=== PATIENT | male | born 1970 | race Caucasian/White ===

== ENCOUNTER 2020-01-30 14:07 | Observation (INO) | payer MEDICARE ==
[2020-01-30] MEDS ORDERED: NITROGLYCERIN OINT 1 INCH/GM PACKET TOPICAL STA (14:41)
[2020-01-30] MEDS ORDERED: ASPIRIN 81 MG PO STA (14:41)
--- NOTE | 2020-01-30 14:51 | ED ---
General Adult HPI - General Chief complaint: Chest Pain Stated complaint: chest pain Time Seen by Provider: 01/30/20 14:10 Source: patient, RN notes reviewed, old records reviewed Mode of arrival: ambulatory Limitations: no limitations - History of Present Illness Initial comments: This a 49-year-old male who presents emergency Department with a past medical history significant for high blood pressure high cholesterol and bypass surgery 3 vessel at 32 years of age. Patient states he had a heart attack since then he's also had multiple stents placed. Patient states yesterday he had chest pain lasted about 15 minutes and today it lasted about 5 minutes. Patient states he was short of breath with the pain and it radiated to his shoulder. Patient states she also mildly sweaty. Patient denies any nausea or vomiting. Patient denies any recent fever chills or cough. Patient denies any leg swelling or calf tenderness. Patient states currently he only has 1 out of 10 chest pain. - Related Data Allergies Allergy/AdvReac Type Severity Reaction Status Date / Time Penicillins Allergy Rash/Hives Verified 01/30/20 14:12 Review of Systems ROS Statement: Those systems with pertinent positive or pertinent negative responses have been documented in the HPI. ROS Other: All systems not noted in ROS Statement are negative. Past Medical History Past Medical History: Myocardial Infarction ([place]) History of Any Multi-Drug Resistant Organisms: None Reported Past Surgical History: Coronary Bypass/CABG, Heart Catheterization With Stent Past Psychological History: No Psychological Hx Reported Smoking Status: Current some day smoker Past Alcohol Use History: None Reported Past Drug Use History: None Reported General Exam - General Exam Comments Initial Comments: GENERAL: Patient is well-developed and well-nourished. Patient is nontoxic and well- hydrated and is in mild distress. ENT: Neck is soft and supple. No significant lymphadenopathy is noted. Oropharynx is clear. Moist mucous membranes. Neck has full range of motion without eliciting any pain. EYES: The sclera were anicteric and conjunctiva were pink and moist. Extraocular movements were intact and pupils were equal round and reactive to light. Eyelids were unremarkable. PULMONARY: Unlabored respirations. Good breath sounds bilaterally. No audible rales rhonchi or wheezing was noted. CARDIOVASCULAR: There is a regular rate and rhythm without any murmurs gallops or rubs. ABDOMEN: Soft and nontender with normal bowel sounds. SKIN: Skin is clear with no lesions or rashes and otherwise unremarkable. NEUROLOGIC: Patient is alert and oriented x3. Cranial nerves II through XII are grossly intact. Motor and sensory are also intact. Normal speech, volume and content. Symmetrical smile. MUSCULOSKELETAL: Normal extremities with adequate strength and full range of motion. No lower ex tremity swelling or edema. No calf tenderness. LYMPHATICS: No significant lymphadenopathy is noted PSYCHIATRIC: Normal psychiatric evaluation. Limitations: no limitations Course Vital Signs 01/30/20 01/30/20 01/30/20 14:08 14:59 15:32 Temperature 97.5 F L Pulse Rate 102 H 96 87 Respiratory 18 18 18 Rate Blood Pressure 144/78 134/96 133/83 O2 Sat by Pulse 100 98 98 Oximetry Medical Decision Making - Medical Decision Making EKG shows normal sinus rhythm at 80 MS interval is 166 QRS is 102 QT interval 360 QTC is 4:15. Patient's EKG shows no ST segment elevation or depression. Chest x-ray shows no acute abnormality. I started the patient heparin for unstable angina. I spoke with Dr. Jaimes for sounds and admitted the patient I wrote admitting orders I consulted cardiology continued heparin Nitropaste on the floor. Patient remained chest pain-free on admission. - Lab Data Result diagrams: 01/30/20 14:43 01/30/20 14:43 Lab Results 01/30/20 01/30/20 01/30/20 Range/Units 14:43 14:43 14:43 WBC 9.2 (3.8-10.6) k/uL RBC 5.24 (4.30-5.90) m/uL Hgb 15.7 (13.0-17.5) gm/dL Hct 48.5 (39.0-53.0) % MCV 92.5 (80.0-100.0) fL MCH 29.9 (25.0-35.0) pg MCHC 32.3 (31.0-37.0) g/dL RDW 12.6 (11.5-15.5) % Plt Count 275 (150-450) k/uL Neutrophils % 46 % Lymphocytes % 41 % Monocytes % 6 % Eosinophils % 4 % Basophils % 1 % Neutrophils # 4.2 (1.3-7.7) k/uL Lymphocytes # 3.8 (1.0-4.8) k/uL Monocytes # 0.6 (0-1.0) k/uL Eosinophils # 0.3 (0-0.7) k/uL Basophils # 0.0 (0-0.2) k/uL PT 9.6 (9.0-12.0) sec INR 0.9 (<1.2) APTT 26.4 (22.0-30.0) sec Sodium 140 (137-145) mmol/L Potassium 4.6 (3.5-5.1) mmol/L Chloride 108 H (98-107) mmol/L Carbon Dioxide 22 (22-30) mmol/L Anion Gap 10 mmol/L BUN 11 (9-20) mg/dL Creatinine 0.68 (0.66-1.25) mg/dL Est GFR (CKD-EPI)AfAm >90 (>60 ml/min/1.73 sqM) Est GFR (CKD-EPI)NonAf >90 (>60 ml/min/1.73 sqM) Glucose 104 H (74-99) mg/dL Calcium 10.1 (8.4-10.2) mg/dL Magnesium 1.9 (1.6-2.3) mg/dL Total Bilirubin 0.3 (0.2-1.3) mg/dL AST 35 (17-59) U/L ALT 47 (4-49) U/L Alkaline Phosphatase 85 (38-126) U/L Troponin I (0.000-0.034) ng/mL Total Protein 8.2 (6.3-8.2) g/dL Albumin 5.0 (3.5-5.0) g/dL 01/30/20 Range/Units 14:43 WBC (3.8-10.6) k/uL RBC (4.30-5.90) m/uL Hgb (13.0-17.5) gm/dL Hct (39.0-53.0) % MCV (80.0-100.0) fL MCH (25.0-35.0) pg MCHC (31.0-37.0) g/dL RDW (11.5-15.5) % Plt Count (150-450) k/uL Neutrophils % % Lymphocytes % % Monocytes % % Eosinophils % % Basophils % % Neutrophils # (1.3-7.7) k/uL Lymphocytes # (1.0-4.8) k/uL Monocytes # (0-1.0) k/uL Eosinophils # (0-0.7) k/uL Basophils # (0-0.2) k/uL PT (9.0-12.0) sec INR (<1.2) APTT (22.0-30.0) sec Sodium (137-145) mmol/L Potassium (3.5-5.1) mmol/L Chloride (98-107) mmol/L Carbon Dioxide (22-30) mmol/L Anion Gap mmol/L BUN (9-20) mg/dL Creatinine (0.66-1.25) mg/dL Est GFR (CKD-EPI)AfAm (>60 ml/min/1.73 sqM) Est GFR (CKD-EPI)NonAf (>60 ml/min/1.73 sqM) Glucose (74-99) mg/dL Calcium (8.4-10.2) mg/dL Magnesium (1.6-2.3) mg/dL Total Bilirubin (0.2-1.3) mg/dL AST (17-59) U/L ALT (4-49) U/L Alkaline Phosphatase (38-126) U/L Troponin I <0.012 (0.000-0.034) ng/mL Total Protein (6.3-8.2) g/dL Albumin (3.5-5.0) g/dL Critical Care Time Critical Care Time: Yes Total Critical Care Time: 35 Disposition Clinical Impression: Unstable angina pectoris Disposition: ADMITTED IP TO THIS [facility] Referrals: None,Stated [Primary Care Provider] - 1-2 days Time of Disposition: 16:12
--- NOTE | 2020-01-30 14:57 | XR ---
EXAMINATION TYPE: XR chest 2V DATE OF EXAM: 01/30/2020 COMPARISON: NONE TECHNIQUE: PA and lateral views submitted. HISTORY: Chest pain FINDINGS: The lungs are clear and there is no pneumothorax, pleural effusion, or focal pneumonia. Biapical pl eural thickening. Surgical change. Coronary stenting noted. Mild cardiomegaly without evidence of ove rt failure. Hyperinflation suggests COPD. Degenerative change of the spine IMPRESSION: 1. No acute process. Correlate for COPD.
[2020-01-30 15:06] LABS: Basophils % (A) 1 %; Eosinophils # (A) 0.3 k/uL (0-0.7); Eosinophils % (A) 4 %; HCT 48.5 % (39.0-53.0); HGB 15.7 gm/dL (13.0-17.5); Lymphocytes # (A) 3.8 k/uL (1.0-4.8); Lymphocytes % (A) 41 %; MCH 29.9 pg (25.0-35.0); MCHC 32.3 g/dL (31.0-37.0); MCV 92.5 fL (80.0-100.0); Mean Platelet Volume 8.1; Monocytes # (A) 0.6 k/uL (0-1.0); Monocytes % (A) 6 %; Neutrophils # (A) 4.2 k/uL (1.3-7.7); Neutrophils % (A) 46 %; Platelet Count 275 k/uL (150-450); RBC 5.24 m/uL (4.30-5.90); RDW 12.6 % (11.5-15.5); WBC 9.2 k/uL (3.8-10.6)
[2020-01-30 15:16] LABS: ALT 47 U/L (4-49); AST 35 U/L (17-59); African American GFR (CKD) >90 (>60 ml/min/1.73 sqM); Alkaline Phosphatase 85 U/L (38-126); Anion Gap 10 mmol/L; Blood Urea Nitrogen 11 mg/dL (9-20); Calcium 10.1 mg/dL (8.4-10.2); Carbon Dioxide 22 mmol/L (22-30); Chloride 108 mmol/L (98-107); Glucose 104 mg/dL (74-99); Magnesium 1.9 mg/dL (1.6-2.3); Non-African American GFR(CKD) >90 (>60 ml/min/1.73 sqM); Potassium 4.6 mmol/L (3.5-5.1); Sodium 140 mmol/L (137-145); Total Bilirubin 0.3 mg/dL (0.2-1.3); Total Protein 8.2 g/dL (6.3-8.2)
[2020-01-30 15:17] LABS: INR 0.9 (<1.2); Partial Thromboplastin Time 26.4 sec (22.0-30.0); Prothrombin Time 9.6 sec (9.0-12.0)
[2020-01-30] MEDS ORDERED: HEPARIN SODIUM,PORCINE 5,000 UNIT/ML 1 ML VIAL IV ONE (16:10)
[2020-01-30] MEDS ORDERED: NITROGLYCERIN SL TABS 0.4 MG TAB SUBLINGUAL PRN (16:12)
[2020-01-30] MEDS ORDERED: HEPARIN SOD,PORK IN 0.45% NACL 25,000 UNIT in 0.45% NACL 1 250ML.BAG IV SCH (16:15)
[2020-01-30] MEDS ORDERED: NALOXONE 0.4 MG/ML 1 ML VIAL IV PRN (17:01)
--- NOTE | 2020-01-30 17:11 | P.HPIM ---
History of Present Illness H&P Date: 01/30/20 Chief Complaint: Chest pain 49-year-old male with a past medical history significant for hypertension and hypercholesterolemia and CAD s/p bypass surgery 3 vessel at 32 years of age, 5 stents placed presents to the emergency department because of worsening chest pain over the past 3 days. He states that last night it became significantly worse. It is located in the center of his chest. This pain is worse with activity and relieved by rest. Associated with mild shortness of breath, diaphoresis and dizziness as well. No nausea or vomiting. No recent illness. No cough. No fevers or chills. Patient denies any leg swelling or calf tenderness. Patient states that he currently has burning sensation behind his chest. In the emergency department he was extensively evaluated, troponins were negative. Rest of laboratory evaluation was unremarkable. He was started on heparin drip and admitted for suspected unstable angina. Review of Systems Complete review of system performed, pertinent positives per HPI, otherwise negative Past Medical History Past Medical History: Myocardial Infarction ([place]) History of Any Multi-Drug Resistant Organisms: None Reported Past Surgical History: Coronary Bypass/CABG, Heart Catheterization With Stent Past Psychological History: No Psychological Hx Reported Smoking Status: Current some day smoker Past Alcohol Use History: None Reported Past Drug Use History: None Reported Medications and Allergies Home Medications Medication Instructions Recorded Confirmed Type Atorvastatin [Lipitor] 80 mg PO DAILY 01/30/20 01/30/20 History Clopidogrel Bisulfate [Plavix] 75 mg PO DAILY 01/30/20 01/30/20 History Isosorbide Mononitrate ER [Imdur] 30 mg PO DAILY 01/30/20 01/30/20 History Lisinopril [Prinivil] 5 mg PO DAILY 01/30/20 01/30/20 History Metoprolol Tartrate [Lopressor] 50 mg PO BID 01/30/20 01/30/20 History Allergies Allergy/AdvReac Type Severity Reaction Status Date / Time Penicillins Allergy Rash/Hives Verified 01/30/20 14:12 Physical Exam Vitals: Vital Signs Temp Pulse Resp BP Pulse Ox 01/30/20 15:32 87 18 133/83 98 01/30/20 14:59 96 18 134/96 98 01/30/20 14:08 97.5 F L 102 H 18 144/78 100 Intake and Output 01/30/20 01/30/20 01/30/20 06:59 14:59 22:59 Other: Weight 81.647 kg Constitutional: No acute distress, conversant, pleasant Eyes:Anicteric sclerae, moist conjunctiva, no lid-lag, PERRLA, ENMT: Oropharynx clear, no erythema, exudates Neck: Supple, FROM, no masses, or JVD, No carotid bruits, No thyromegaly Lungs: Clear to auscultation, Clear to percussion, Normal respiratory effort, no accessory muscle use Cardiovascular: Heart regular in rate and rhythm, No murmurs, gallops, or rubs, No peripheral edema Abdominal: Soft, Nontender, no guarding, rebound or rigidity, Normoactive bowel sounds, No hepatomegaly, No splenomegaly, No palpable mass Skin: Normal temperature, tone, texture, turgor, no induration, No subcutaneous nodules, No rash, lesions, No ulcers Extremities: No digital cyanosis, No clubbing, Pedal pulses intact and symmetrical, Radial pulses intact and symmetrical, No calf tenderness Psychiatric: Alert and oriented to person, place and time, appropriate affect, intact judgement Neuro: Muscles Strength 5/5 in all 4 extremities, Sensation to light touch grossly present throughout, Cranial nerves II-XII grossly intact, no focal sensory deficits Results CBC & Chem 7: 01/30/20 14:43 01/30/20 14:43 Labs: Abnormal Lab Results - Last 24 Hours (Table) 01/30/20 Range/Units 14:43 Chloride 108 H (98-107) mmol/L Glucose 104 H (74-99) mg/dL Assessment and Plan Plan: Unstable angina, rule out non-STEMI Cycle troponins Monitor on telemetry Heparin drip Aspirin Continue Plavix Continue statin and beta adama Cardiology consultation Hypertension/hyperlipidemia Check lipid profile Resume meds Patient will be admitted to inpatient, expected length of stay more than 2 midnights
[2020-01-30] MEDS: ATORVASTATIN 80 MG TAB PO SCH (18:19)
[2020-01-30] MEDS ORDERED: RX INFO: IV CONTRAST WAS GIVEN 1 EACH MISC MISCELLANE PRN (18:20)
--- NOTE | 2020-01-30 18:20 | P.CARDCATH ---
Date of Procedure: 01/30/20 Preoperative Diagnosis: Unstable angina Postoperative Diagnosis: Triple-vessel disease Procedure(s) Performed: Left heart catheterization without left ventriculography Description of Procedure: HISTORY: This is a 49-year-old gentleman with history of ischemic heart disease with previous stent placement of the RCA was admitted to the hospital with recurrent chest pain size to of unstable angina. His cardiac enzymes studies are negative. Patient is advised to have a cardiac catheterization proceeded is any progression of ischemic heart disease. CONSENT:I have discussed the risks, benefits and alternative therapies for the above-mentioned procedure and for both sedation/analgesia as well as necessary blood product administration, if indicated, as they pertain to this patient. The patient has indicated understanding and acceptance of the risks and procedures discussed. [] PROCEDURE: Patient was brought to the lab in a fasting state. Patient was given some IV sedation. The right groin is infiltrated with lidocaine and right femoral artery was entered using Seldinger technique. A 6-Indonesian catheter was left in place and selective coronary arteriography was performed. Patient tolerated the procedure well. Femoral angiogram was performed and Angio-Seal was applied for hemostasis. No immediate complications were noted and patient was transferred to [facility] in a stable condition Conscious Sedation: Versed 1mg Fentanyl 50 g Duration 19minutes HEMODYNAMICS: The aortic pressure is about 120/70. Left ankle end-diastolic pressure is 8-12. There was no gradient across the aortic valve SELECTIVE CORONARY ARTERIOGRAPHY: LEFT MAIN: Normal length with about 40-50% distal stenosis THE LEFT ANTERIOR DESCENDING CORONARY ARTERY:. This is a good caliber vessel with eccentric close to 70% stenosis proximally. It gives rise to moderate caliber diagonal branch the LAD diagonal branch is about 60-70% stenosis. THE LEFT CIRCUMFLEX AND IS CORONARY ARTERY: This is a moderate caliber vessel with a of moderate plaque beyond the origin of the first OM branch. Rest of the circumflex is free of any significant occlusive disease THE RIGHT CORONARY ARTERY:. This is totally occluded and at the ostium. There are collaterals from the left to the distal RCA LEFT VENTRICULOGRAPHY: Not performed FINAL IMPRESSION:, Coronary artery disease with total occlusion of the RCA moderate to severe disease involving the left main and also proximal LAD PLAN: Maximum medical therapy. Possible revascularization with bypass surgery to the LAD, circumflex and also the right coronary artery. Cardiac surgery consultation is obtained PROGNOSIS: Guarded
[2020-01-30] MEDS ORDERED: SODIUM CHLORIDE 0.9% 1,000 ML IV SCH (18:30)
[2020-01-30] MEDS: NITROGLYCERIN OINT 1 INCH/GM PACKET TOPICAL SCH (22:10)
[2020-01-30] MEDS: METOPROLOL TARTRATE 50 MG TAB PO SCH (22:11)
[2020-01-31] MEDS: NITROGLYCERIN OINT 1 INCH/GM PACKET TOPICAL SCH (05:09)
[2020-01-31 06:08] LABS: Basophils # (A) 0.1 k/uL (0-0.2); Basophils % (A) 1 %; Eosinophils # (A) 0.3 k/uL (0-0.7); Eosinophils % (A) 3 %; HCT 43.6 % (39.0-53.0); Lymphocytes # (A) 4.5 k/uL (1.0-4.8); Lymphocytes % (A) 47 %; MCH 30.1 pg (25.0-35.0); MCHC 32.2 g/dL (31.0-37.0); MCV 93.6 fL (80.0-100.0); Mean Platelet Volume 8.1; Monocytes # (A) 0.7 k/uL (0-1.0); Monocytes % (A) 7 %; Neutrophils # (A) 3.6 k/uL (1.3-7.7); Neutrophils % (A) 38 %; Platelet Count 233 k/uL (150-450); RBC 4.66 m/uL (4.30-5.90); RDW 12.6 % (11.5-15.5); WBC 9.6 k/uL (3.8-10.6)
[2020-01-31 06:33] LABS: African American GFR (CKD) >90 (>60 ml/min/1.73 sqM); Anion Gap 6 mmol/L; Blood Urea Nitrogen 10 mg/dL (9-20); Carbon Dioxide 24 mmol/L (22-30); Chloride 110 mmol/L (98-107); Cholesterol 154 mg/dL (<200); Glucose 101 mg/dL (74-99); HDL Cholesterol 37 mg/dL (40-60); LDL Cholesterol,Calculated 74 mg/dL (0-99); Magnesium 1.9 mg/dL (1.6-2.3); Non-African American GFR(CKD) >90 (>60 ml/min/1.73 sqM); Phosphorus 3.9 mg/dL (2.5-4.5); Potassium 4.4 mmol/L (3.5-5.1); Sodium 140 mmol/L (137-145); Triglycerides 215 mg/dL (<150)
[2020-01-31 08:03] VITALS: RESP 18
[2020-01-31] MEDS ORDERED: ASPIRIN 325 MG TAB PO SCH (09:00)
[2020-01-31] MEDS ORDERED: ISOSORBIDE MONONITRATE ER 30 MG TAB.ER.24H PO SCH (09:00)
[2020-01-31] MEDS ORDERED: ASPIRIN 81 MG PO SCH (09:00)
[2020-01-31] MEDS ORDERED: CLOPIDOGREL 75 MG TAB PO SCH (09:00)
[2020-01-31] MEDS ORDERED: LISINOPRIL 5 MG TAB PO SCH (09:00)
[2020-01-31] MEDS ORDERED: EZETIMIBE 10 MG TAB PO SCH (10:45)
--- NOTE | 2020-01-31 11:48 | P.CRDCN ---
History of Present Illness History of present illness: HISTORY OF PRESENTING ILLNESS This is a pleasant 49-year-old male past medical history significant for coronary artery disease status post bypass grafting and subsequent stent placement, hypertension, dyslipidemia and chronic nicotine dependence. He follows in the office with Dr. Weaver. We have been asked to see in consultation for chest pain. He states yesterday while sitting down he experienced an episode of sharp discomfort in the left precordial region. There was no associated symptoms and no radiation of the pain. The discomfort lasted for approximately 15 minutes with no specific aggravating or alleviating factor. He states he has not experienced a discomfort like this in the past this felt different than his previous MIs. He states his last myocardial infarction was in 2018. That time he underwent cardiac catheterization with Dr. Weaver. That report has been requested and reviewed and at that time he had 2 vein grafts that were occluded with a patent SRIVASTAVA to LAD and maximizing his medical therapy was recommended. He is seen and examined resting comfortably in no acute distress. He has had no further symptoms of chest discomfort. DIAGNOSTICS EKG reveals sinus mechanism with no acute ST or T-wave abnormalities. Chest xray negative for an acute cardiopulmonary process with underlying COPD. Laboratory reviewed, see unremarkable, sodium 140, potassium 4.4, creatinine 0.78, magnesium 1.9, cardiac enzymes negative 3, LDL 74 and HDL 37. Current cardiac medications include atorvastatin 80 mg daily, Plavix 75 mg daily, Imdur 30 mg daily, lisinopril 5 mg daily and metoprolol 50 mg twice a day. REVIEW OF SYSTEMS At the time of my exam: CONSTITUTIONAL: Denies fever or chills. CARDIOVASCULAR: Denies chest pain, shortness of breath, orthopnea, PND or palpitations. RESPIRATORY: Denies cough. GASTROINTESTINAL: Denies abdominal pain, diarrhea, constipation, nausea or vomiting. MUSCULOSKELETAL: Denies myalgias. NEUROLOGIC: Denies numbness, tingling or weakness. ENDOCRINE: Denies fatigue, weight change, polydipsia or polyurina. GENITOURINARY: Denies burning, hematuria or urgency with micturation. HEMATOLOGIC: Denies history of anemia or bleeding. PHYSICAL EXAMINATION Blood pressure 122/73 heart rate 72 afebrile and maintaining oxygen saturation on room air. CONSTITUTIONAL: No apparent distress. HEENT: Head is normocephalic. Pupils are equal, round. Sclerae anicteric. Mucous membranes of the mouth are moist. No JVD. No carotid bruit. CHEST EXAMINATION: Lungs are clear to auscultation. No chest wall tenderness is noted on palpation or with deep breathing. HEART EXAMINATION: Regular rate and rhythm. S1, S2 heard. No murmurs, gallops or rub. ABDOMEN: Soft, nontender. Positive bowel sounds. EXTREMITIES: 2+ peripheral pulses, no lower extremity edema and no calf tenderness. NEUROLOGIC EXAMINATION: Patient is awake, alert and oriented x3. ASSESSMENT Chest pain, atypical. An acute coronary event has been ruled out. Coronary artery disease status post bypass grafting with occluded vein grafts and patent SRIVASTAVA to LAD Hypertension Dyslipidemia Chronic nicotine dependence PLAN An acute coronary event has been ruled out. Increase Imdur to 60 mg daily and and steady at 10 mg to his daily regimen for an optimal LDL of less than 50 given his significant coronary artery disease. Increase activity and ambulation in the halls. If he has persistent exertional chest pain we will continue to monitor for another 24 hours otherwise he may be discharged home to follow-up with Dr. Weaver upon discharge. Thank you kindly for this consultation. Nurse Practitioner note has been reviewed, I agree with a documented findings and plan of care. Patient was seen and examined. Past Medical History Past Medical History: Hyperlipidemia, Hypertension, Myocardial Infarction ([place]) Last Myocardial Infarction Date:: 05/2018 History of Any Multi-Drug Resistant Organisms: None Reported Past Surgical History: Coronary Bypass/CABG, Heart Catheterization With Stent Additional Past Surgical History / Comment(s): triple bypass 2002?, heart caths with about 6 stents Past Anesthesia/Blood Transfusion Reactions: No Reported Reaction Date of Last Stent Placement:: 2010? Past Psychological History: No Psychological Hx Reported Smoking Status: Current some day smoker Past Alcohol Use History: None Reported Additional Past Alcohol Use History / Comment(s): has smoked for 35 years, smokes about a pack and a half a day. Past Drug Use History: None Reported Medications and Allergies Home Medications Medication Instructions Recorded Confirmed Type Atorvastatin [Lipitor] 80 mg PO DAILY 01/30/20 01/30/20 History Clopidogrel Bisulfate [Plavix] 75 mg PO DAILY 01/30/20 01/30/20 History Isosorbide Mononitrate ER [Imdur] 30 mg PO DAILY 01/30/20 01/30/20 History Lisinopril [Prinivil] 5 mg PO DAILY 01/30/20 01/30/20 History Metoprolol Tartrate [Lopressor] 50 mg PO BID 01/30/20 01/30/20 History Allergies Allergy/AdvReac Type Severity Reaction Status Date / Time Penicillins Allergy Rash/Hives Verified 01/30/20 14:12 Physical Exam Vitals: Vital Signs Temp Pulse Pulse Resp BP BP Pulse Ox 01/31/20 07:30 97.6 F 72 18 122/73 97 01/31/20 04:00 97.9 F 65 16 136/80 99 01/31/20 00:00 98.0 F 78 17 101/66 98 01/30/20 19:40 16 01/30/20 19:27 98.0 F 67 16 121/74 97 01/30/20 18:47 118/52 01/30/20 18:30 118/54 01/30/20 17:52 98.5 F 83 18 142/86 99 01/30/20 17:27 97.5 F L 77 18 127/77 100 01/30/20 17:22 77 18 127/77 100 01/30/20 15:32 87 18 133/83 98 01/30/20 14:59 96 18 134/96 98 01/30/20 14:08 97.5 F L 102 H 18 144/78 100 Intake and Output 01/30/20 01/31/20 01/31/20 22:59 06:59 14:59 Intake Total 480 Balance 480 Intake: Oral 480 Other: # Voids 1 Weight 84.9 kg 85.3 kg Results 01/31/20 05:51 01/31/20 05:51 Cardiac Enzymes 01/30/20 01/30/20 01/30/20 Range/Units 14:43 14:43 20:25 AST 35 (17-59) U/L Troponin I <0.012 <0.012 (0.000-0.034) ng/mL 01/31/20 Range/Units 03:12 AST (17-59) U/L Troponin I <0.012 (0.000-0.034) ng/mL Coagulation 01/30/20 01/30/20 01/31/20 Range/Units 14:43 22:52 05:51 PT 9.6 (9.0-12.0) sec APTT 26.4 60.6 H 49.0 H (22.0-30.0) sec Lipids 01/31/20 Range/Units 05:51 Triglycerides 215 H (<150) mg/dL Cholesterol 154 (<200) mg/dL HDL Cholesterol 37 L (40-60) mg/dL CBC 01/30/20 01/31/20 Range/Units 14:43 05:51 WBC 9.2 9.6 (3.8-10.6) k/uL RBC 5.24 4.66 (4.30-5.90) m/uL Hgb 15.7 14.0 (13.0-17.5) gm/dL Hct 48.5 43.6 (39.0-53.0) % Plt Count 275 233 (150-450) k/uL Comprehensive Metabolic Panel 01/30/20 01/31/20 Range/Units 14:43 05:51 Sodium 140 140 (137-145) mmol/L Potassium 4.6 4.4 (3.5-5.1) mmol/L Chloride 108 H 110 H (98-107) mmol/L Carbon Dioxide 22 24 (22-30) mmol/L BUN 11 10 (9-20) mg/dL Creatinine 0.68 0.78 (0.66-1.25) mg/dL Glucose 104 H 101 H (74-99) mg/dL Calcium 10.1 9.0 (8.4-10.2) mg/dL AST 35 (17-59) U/L ALT 47 (4-49) U/L Alkaline Phosphatase 85 (38-126) U/L Total Protein 8.2 (6.3-8.2) g/dL Albumin 5.0 (3.5-5.0) g/dL Current Medications Generic Name Dose Route Start Last Admin Trade Name Freq PRN Reason Stop Dose Admin Aspirin 81 mg 01/31/20 09:00 Aspirin PO DAILY [facility] Atorvastatin Calcium 80 mg 01/30/20 17:15 01/30/20 18:19 Lipitor PO 80 mg DAILY [facility] Administration Clopidogrel Bisulfate 75 mg 01/31/20 09:00 Plavix PO DAILY [facility] Heparin Sodium/Sodium Chloride 250 mls @ 9.798 mls/hr 01/30/20 16:15 01/30/20 17:23 25,000 unit/ Sodium Chloride IV 12 units/kg/hr .Q24H [facility]ANK 9.798 mls/hr Administration Protocol 12 UNITS/KG/HR Sodium Chloride 1,000 mls @ 75 mls/hr 01/30/20 18:30 01/30/20 22:11 Saline 0.9% IV 75 mls/hr .[id number] [facility]ANK Administration Isosorbide Mononitrate 30 mg 01/31/20 09:00 Imdur PO DAILY [facility] Lisinopril 5 mg 01/31/20 09:00 Zestril PO DAILY [facility] Metoprolol Tartrate 50 mg 01/30/20 21:00 01/30/20 22:11 Lopressor PO 50 mg BID [facility] Administration Miscellaneous Information 1 each 01/30/20 18:20 Rx Info: Iv Contrast Was Given MISCELLANE 02/01/20 18:20 DAILY PRN Per Protocol Naloxone HCl 0.2 mg 01/30/20 17:01 Narcan IV Q2M PRN Opioid Reversal Nitroglycerin 0.4 mg 01/30/20 16:12 Nitrostat SUBLINGUAL Q5M PRN Chest Pain Nitroglycerin 1 inch 01/30/20 21:00 01/31/20 05:09 Nitro-Bid Oint TOPICAL Not Given Q6H FRANK Intake and Output 01/30/20 01/31/20 01/31/20 22:59 06:59 14:59 Intake Total 480 Balance 480 Intake: Oral 480 Other: # Voids 1 Weight 84.9 kg 85.3 kg 01/31/20 05:51 01/31/20 05:51
[2020-01-31 11:59] VITALS: BP 129/79; PULSE 67; TEMP 98.2
[2020-01-31] MEDS ORDERED: ISOSORBIDE MONONITRATE ER 60 MG TAB.ER.24H PO STA (12:27)
[2020-01-31] MEDS: METOPROLOL TARTRATE 50 MG TAB PO SCH (12:44)
[2020-01-31] MEDS: ATORVASTATIN 80 MG TAB PO SCH (12:44)
--- NOTE | 2020-01-31 19:45 | ECHOF ---
Referral Reason:cp MEASUREMENTS -------- HEIGHT: 180.3 cm WEIGHT: 85.3 kg BP: RVIDd: 3.2 cm (< 3.3) IVSd: 1.1 cm (0.6 - 1.1) LVIDd: 4.7 cm (3.9 - 5.3) LVPWd: 1.5 cm (0.6 - 1.1) IVSs: 1.6 cm LVIDs: 3.5 cm LVPWs: 1.5 cm LAESV Index (A-L): 23.48 ml/m Ao Diam: 3.3 cm (2.0 - 3.7) AV Cusp: 2.4 cm (1.5 - 2.6) LA Diam: 3.5 cm (2.7 - 3.8) MV EXCURSION: 19.436 mm (> 18.000) MV EF SLOPE: 121 mm/s (70 - 150) EPSS: 0.5 cm MV E Sukhjinder: 0.60 m/s MV DecT: 150 ms MV A Sukhjinder: 0.48 m/s MV E/A Ratio: 1.24 RAP: 5.00 mmHg RVSP: 11.95 mmHg FINDINGS -------- Sinus rhythm. This was a technically good study. The left ventricular size is normal. There is mild concentric left ventricular hypertrophy. Overa ll left ventricular systolic function is low-normal with, an EF between 50 - 55 %. The diastolic fi lling pattern is normal for the age of the patient 5.97. Septal wall motion is delayed and consiste nt with prior cardiac surgery. The right ventricle is normal in size. The left atrial size is normal. Normal LA size by volume 22+/-6 ml/m2. The right atrial size is normal. The aortic valve is trileaflet and appears structurally normal. The mitral valve is normal. There is trace mitral regurgitation. The tricuspid valve appears structurally normal. Trace tricuspid regurgitation present. Right maribel tricular systolic pressure is normal at < 35 mmHg. There is no pulmonic regurgitation present. The aortic root size is normal. Normal inferior vena cava with normal inspiratory collapse consistent with estimated right atrial pre ssure of 5 mmHg. There is no pericardial effusion. CONCLUSIONS -------- 1. Sinus rhythm. 2. This was a technically good study. 3. The left ventricular size is normal. 4. There is mild concentric left ventricular hypertrophy. 5. Overall left ventricular systolic function is low-normal with, an EF between 50 - 55 %. 6. The diastolic filling pattern is normal for the age of the patient 5.97 7. Septal wall motion is delayed and consistent with prior cardiac surgery. 8. The right ventricle is normal in size. 9. The left atrial size is normal. 10. Normal LA size by volume 22+/-6 ml/m2. 11. The right atrial size is normal. 12. The aortic valve is trileaflet and appears structurally normal. 13. The mitral valve is normal. 14. There is trace mitral regurgitation. 15. The tricuspid valve appears structurally normal. 16. Trace tricuspid regurgitation present. 17. Right ventricular systolic pressure is normal at < 35 mmHg. 18. There is no pulmonic regurgitation present. 19. The aortic root size is normal. 20. Normal inferior vena cava with normal inspiratory collapse consistent with estimated right atrial pressure of 5 mmHg. 21. There is no pericardial effusion. HUMAN SERVICES ASSISTANT: Alejandra Canada RDCS
--- NOTE | 2020-01-31 20:51 | P.DS ---
Providers Date of admission: 01/30/20 17:01 Expected date of discharge: 01/31/20 Attending physician: Belia Ordoñez MD Consults: 01/30/20 16:13 Consult Physician Urgent Consulting Provider: [facility] Consult Reason/Comments: Unstable angina Do you want consulting provider notified?: Yes Primary care physician: Stated None Hospital Course: Discharge Diagnosis: Chest pain anxiety HLD HTN CAD Hospital Course: Patient is a 49-year-old male with a past medical history of coronary artery disease status post bypass grafting at age 32 and 5 stents, hypertension, and dyslipidemia who presented to the emergency department for chest pain. His troponins remained negative. EKG remained nonischemic. He was started on increased Imdur. He was no longer having chest pain on exertion. He was seen by cardiology. He was determined stable for discharge home. He was noted to have elevated triglyceride level as well as an LDL of 74. They recommended adding Zetia to his Lipitor. Patient reports some increased stress at home secondary to his mother having pancreatic cancer need to take her to all appointments. He also states he has not been eating right. He does think some of this chest pain may be secondary to increased stress at home. He is aware of the importance of following up with Dr. Weavre his primary clubhouse attendant out of [place] to determine if he thinks further action needs to be taken. We have also discussed finding a primary care physician to help start him on a medication for stress. He will think about seeing Dr. Ruano out of [place]. He was discharged home in stable condition on a 30 day supply of his new medications are sent to [facility] in [place]. Patient seen and examined at bedside. No additional chest pain or shortness of breath. Vital signs reviewed and stable. General: non toxic, no distress, appears at stated age Derm: warm, dry Head: atraumatic, normocephalic, symmetric Eyes: EOMI, no lid lag, anicteric sclera Mouth: no lip lesion, mucus membranes moist Cardiovascular: S1S2 reg, no murmur, positive posterior tibial pulse bilateral, Lungs: CTA bilateral, no rhonchi, no rales , no accessory muscle use Abdominal: soft, nontender to palpation, no guarding, no appreciable organomegaly Ext: no gross muscle atrophy, no edema, no contractures Neuro: CN II-XI grossly intact, no focal neuro deficits Psych: Alert, oriented, appropriate affect A total of 25 minutes of time were spent preparing this complex discharge summary . Patient Condition at Discharge: Stable Plan - Discharge Summary Discharge Rx Participant: Yes New Discharge Prescriptions: New Aspirin 81 mg PO DAILY chew Isosorbide Mononitrate ER [Imdur] 60 mg PO DAILY #60 tab.er.24h Ezetimibe [Zetia] 10 mg PO DAILY #30 tab Continue Atorvastatin [Lipitor] 80 mg PO DAILY Metoprolol Tartrate [Lopressor] 50 mg PO BID Clopidogrel Bisulfate [Plavix] 75 mg PO DAILY Lisinopril [Prinivil] 5 mg PO DAILY Discontinued Isosorbide Mononitrate ER [Imdur] 30 mg PO DAILY Discharge Medication List Atorvastatin [Lipitor] 80 mg PO DAILY 01/30/20 [History] Clopidogrel Bisulfate [Plavix] 75 mg PO DAILY 01/30/20 [History] Lisinopril [Prinivil] 5 mg PO DAILY 01/30/20 [History] Metoprolol Tartrate [Lopressor] 50 mg PO BID 01/30/20 [History] Aspirin 81 mg PO DAILY chew 01/31/20 [Rx] Ezetimibe [Zetia] 10 mg PO DAILY #30 tab 01/31/20 [Rx] Isosorbide Mononitrate ER [Imdur] 60 mg PO DAILY #60 tab.er.24h 01/31/20 [Rx] Follow up Appointment(s)/Referral(s): Cuba Ruano MD [STAFF PHYSICIAN] - 1 Week Elmo Weaver DO [REFERRING] - 1-2 Days Patient Instructions/Handouts: Heart Healthy Diet (GEN), Mediterranean Diet (GEN) Activity/Diet/Wound Care/Special Instructions: Activity: as tolerated Diet: heart healthy Special Instructions: Return to emergency department if recurrent chest pain Discharge Disposition: HOME SELF-CARE
[2020-02-01] MEDS ORDERED: ISOSORBIDE MONONITRATE ER 60 MG TAB.ER.24H PO SCH (09:00)
--- NOTE | 2020-02-06 00:42 | CDI ---
Documentation Clarification Form Date: 02/06/2020 From: Charanjit Olsen Phone: If you have a question about this query, please contact Kandy Jean-Baptiste Ladle Repairman at [phone] between 8am and 5pm. Admit Date: 01/30/2020 Discharge Date: 01/31/2020 Patient Name: Stewart Smith Visit Number: [id number] ATTENTION: The Clinical Documentation Specialists (CDI) and [facility] Coding Staff appreciate your assistance in clarifying documentation. Please respond to the clarification below the line at the bottom and electronically sign. The CDI & [facility] Coding staff will review the response and follow-up if needed. Please note: Queries are made part of the Legal Health Record. If you have any questions, please contact the author of this message via ITS. Dear Nakia Clemens, The patients principal diagnosis has not been clearly identified and requires clarification. He presented with the Chest pain. History/Risk factors: Myocardial infarction. Radiology findings: No acute process.Correlate for COPD. Vital Signs: Pulse Rate 102 H 96 87 Respiratory 18 18 18 Treatment:He was started on increased Imdur. Other tx: ECHO. Patient reports some increased stress at home secondary to his mother having pancreatic cancer need to take her to all appointments.He also states he has not been eating right.He does think some of this chest pain may be secondary to increased stress at home. In your professional opinion, can you please clarify which diagnosis, after study, accounted for the patients presenting symptoms and was the reason chiefly responsible for the admission? Chest pain related to Acute stress reaction Chest pain , Atypical Chest Pain, atypical MTDD
== END 2020-01-31 15:50 | disposition home or self-care (01) ==
LOC: EC 14:07 → 1SOBS 16:24 → OBSVTOIN 17:01 → INTOOBSV 17:01 → UNDODISIN 01-31 15:50
PROVIDERS: ADMIT Internal Medicine; ATTEND Internal Medicine
DX: R07.89 Other chest pain (principal); R07.2 Precordial pain; R06.02 Shortness of breath; R61 Generalized hyperhidrosis; R42 Dizziness and giddiness; I10 Essential (primary) hypertension; E78.00 Pure hypercholesterolemia, unspecified; E78.5 Hyperlipidemia, unspecified; F41.9 Anxiety disorder, unspecified; Z95.1 Presence of aortocoronary bypass graft; I25.2 Old myocardial infarction; Z95.5 Presence of coronary angioplasty implant and graft; T82.898A Other specified complication of vascular prosthetic devices, implants and grafts, initial encounter; F17.200 Nicotine dependence, unspecified, uncomplicated; I25.10 Atherosclerotic heart disease of native coronary artery without angina pectoris; Z79.899 Other long term (current) drug therapy; Z79.02 Long term (current) use of antithrombotics/antiplatelets; Z88.0 Allergy status to penicillin; Z80.8 Family history of malignant neoplasm of other organs or systems
CPT/HCPCS: 96366 ×2; 96376; 96365; 99291; 36415; 93005; 93306; 80061; 80053; 80048; 83735 ×2; 84100; 84484 ×2; 85025 ×2; 85610; 85730 ×2; 71046; G0378 ×2; J1644 ×2; 96374

== ENCOUNTER 2021-04-12 14:48 | Observation (INO) | payer MEDICARE ==
--- NOTE | 2021-04-12 14:58 | ED ---
Weakness HPI - General Stated complaint: stroke Time Seen by Provider: 04/12/21 14:48 Source: patient, EMS, RN notes reviewed - History of Present Illness Initial comments: This is a 50-year-old male with a history of prior CVA and TIAs as well as a recent cardiac cath 2 weeks ago who had the sudden onset about 45 minutes prior to arrival of left-sided weakness and numbness/tingling to upper or lower extremities as well as visual problems with the left side. Apparently the visual problems she started 2 days ago. No headache no nausea no vomiting fevers chills sweats or other symptoms he does state he is feeling somewhat better - Related Data Home Medications Medication Instructions Recorded Confirmed Atorvastatin [Lipitor] 80 mg PO HS@1900 01/30/20 04/12/21 Clopidogrel Bisulfate [Plavix] 75 mg PO HS@1900 01/30/20 04/12/21 Metoprolol Tartrate [Lopressor] 50 mg PO Q12H 01/30/20 04/12/21 lisinopriL [Prinivil] 5 mg PO HS@1900 01/30/20 04/12/21 Aspirin 81 mg PO HS@1900 04/12/21 04/12/21 Ranolazine [Ranexa] 1,000 mg PO Q12H 04/12/21 04/12/21 Allergies Allergy/AdvReac Type Severity Reaction Status Date / Time Penicillins Allergy Rash/Hives Verified 04/12/21 16:04 Review of Systems ROS Statement: Those systems with pertinent positive or pertinent negative responses have been documented in the HPI. ROS Other: All systems not noted in ROS Statement are negative. Past Medical History Past Medical History: Hyperlipidemia, Hypertension, Myocardial Infarction (CO) Last Myocardial Infarction Date:: 05/2018 History of Any Multi-Drug Resistant Organisms: None Reported Past Surgical History: Coronary Bypass/CABG, Heart Catheterization With Stent Additional Past Surgical History / Comment(s): triple bypass 2002?, heart caths with about 6 stents Past Anesthesia/Blood Transfusion Reactions: No Reported Reaction Date of Last Stent Placement:: 2010? Past Psychological History: No Psychological Hx Reported Past Alcohol Use History: None Reported Additional Past Alcohol Use History / Comment(s): has smoked for 35 years, smokes about a pack and a half a day. Past Drug Use History: None Reported General Exam - General Exam Comments Initial Comments: This is a well-developed well-nourished awake alert oriented times 3 male Limitations: physical limitation General appearance: alert, anxious Head exam: Present: atraumatic, normocephalic, normal inspection Eye exam: Present: normal appearance, PERRL, EOMI. Absent: scleral icterus, conjunctival injection, periorbital swelling ENT exam: Present: normal exam, mucous membranes moist Neck exam: Present: normal inspection, full ROM, other (No stridor JVD or bruits). Absent: tenderness, meningismus, lymphadenopathy Respiratory exam: Present: normal lung sounds bilaterally. Absent: respiratory distress, wheezes, rales, rhonchi, stridor Cardiovascular Exam: Present: regular rate, normal rhythm, normal heart sounds. Absent: systolic murmur, diastolic murmur, rubs, gallop, clicks GI/Abdominal exam: Present: soft, normal bowel sounds. Absent: distended, tenderness, guarding, rebound, rigid Extremities exam: Present: normal inspection, full ROM, normal capillary refill. Absent: tenderness, pedal edema, joint swelling, calf tenderness Back exam: Present: normal inspection Neurological exam: Present: alert, oriented X3, CN II-XII intact, motor sensory deficit Psychiatric exam: Present: normal affect, normal mood Skin exam: Present: warm, dry, intact, normal color. Absent: rash Course Vital Signs 04/12/21 04/12/21 04/12/21 15:00 15:07 15:15 Temperature Pulse Rate 92 96 91 Respiratory 20 20 20 Rate Blood Pressure 138/91 138/91 127/85 O2 Sat by Pulse 100 100 100 Oximetry 04/12/21 04/12/21 04/12/21 15:30 15:45 16:00 Temperature 97.5 F L 97.5 F L Pulse Rate 85 82 77 Respiratory 18 18 18 Rate Blood Pressure 121/84 118/77 129/80 O2 Sat by Pulse 99 99 99 Oximetry 04/12/21 04/12/21 04/12/21 16:11 16:15 16:30 Temperature 97.5 F L Pulse Rate 77 75 77 Respiratory 18 18 18 Rate Blood Pressure 124/80 129/77 124/80 O2 Sat by Pulse 99 99 99 Oximetry - Reevaluation(s) Reevaluation #1: 04/12/21 15:06 Reevaluation post CAT scan patient is able move his left upper extremity is able move his left foot was still has some difficulty with movement he also still has some tingling to his left arm and leg Reevaluation #2: 04/12/21 15:36 Patient states he is feeling essentially back to his baseline. EKG Findings - EKG Results: EKG: interpreted by KURT, sinus rhythm (Sinus rhythm of 95. Interval 168 QRS 100 daily since QTC 360/452 nonspecific inferior configuration) Medical Decision Making - Medical Decision Making I did discuss findings with the patient family patient be admitted with neurological consultation. Case discussed with Dr. Mistry area the patient's extremity weakness appears to have improved he states he still having some numbness to left side of his face with some visual problems he does take Plavix and aspirin. He states he has not missed a dose. - Lab Data Result diagrams: 04/12/21 15:04 04/12/21 15:04 Lab Results 04/12/21 04/12/21 04/12/21 Range/Units 15:02 15:04 15:04 WBC 9.3 (3.8-10.6) k/uL RBC 4.69 (4.30-5.90) m/uL Hgb 14.1 (13.0-17.5) gm/dL Hct 43.2 (39.0-53.0) % MCV 92.2 (80.0-100.0) fL MCH 30.1 (25.0-35.0) pg MCHC 32.7 (31.0-37.0) g/dL RDW 13.3 (11.5-15.5) % Plt Count 272 (150-450) k/uL MPV 7.9 Neutrophils % 51 % Lymphocytes % 38 % Monocytes % 6 % Eosinophils % 3 % Basophils % 1 % Neutrophils # 4.7 (1.3-7.7) k/uL Lymphocytes # 3.5 (1.0-4.8) k/uL Monocytes # 0.5 (0-1.0) k/uL Eosinophils # 0.3 (0-0.7) k/uL Basophils # 0.1 (0-0.2) k/uL PT 10.2 (9.0-12.0) sec INR 0.9 (<1.2) APTT 28.0 (22.0-30.0) sec Sodium (137-145) mmol/L Potassium (3.5-5.1) mmol/L Chloride (98-107) mmol/L Carbon Dioxide (22-30) mmol/L Anion Gap mmol/L BUN (9-20) mg/dL Creatinine (0.66-1.25) mg/dL Est GFR (CKD-EPI)AfAm (>60 ml/min/1.73 sqM) Est GFR (CKD-EPI)NonAf (>60 ml/min/1.73 sqM) Glucose (74-99) mg/dL POC Glucose (mg/dL) 113 H (75-99) mg/dL POC Glu Automotive Engineering Technician ID Merary Marti Calcium (8.4-10.2) mg/dL Total Bilirubin (0.2-1.3) mg/dL AST (17-59) U/L ALT (4-49) U/L Alkaline Phosphatase (38-126) U/L Creatine Kinase (55-170) U/L Troponin I (0.000-0.034) ng/mL Total Protein (6.3-8.2) g/dL Albumin (3.5-5.0) g/dL Coronavirus (PCR) (Not Detectd) 04/12/21 04/12/21 04/12/21 Range/Units 15:04 15:04 16:49 WBC (3.8-10.6) k/uL RBC (4.30-5.90) m/uL Hgb (13.0-17.5) gm/dL Hct (39.0-53.0) % MCV (80.0-100.0) fL MCH (25.0-35.0) pg MCHC (31.0-37.0) g/dL RDW (11.5-15.5) % Plt Count (150-450) k/uL MPV Neutrophils % % Lymphocytes % % Monocytes % % Eosinophils % % Basophils % % Neutrophils # (1.3-7.7) k/uL Lymphocytes # (1.0-4.8) k/uL Monocytes # (0-1.0) k/uL Eosinophils # (0-0.7) k/uL Basophils # (0-0.2) k/uL PT (9.0-12.0) sec INR (<1.2) APTT (22.0-30.0) sec Sodium 137 (137-145) mmol/L Potassium 4.6 (3.5-5.1) mmol/L Chloride 106 (98-107) mmol/L Carbon Dioxide 22 (22-30) mmol/L Anion Gap 9 mmol/L BUN 8 L (9-20) mg/dL Creatinine 0.94 (0.66-1.25) mg/dL Est GFR (CKD-EPI)AfAm >90 (>60 ml/min/1.73 sqM) Est GFR (CKD-EPI)NonAf >90 (>60 ml/min/1.73 sqM) Glucose 117 H (74-99) mg/dL POC Glucose (mg/dL) (75-99) mg/dL POC Glu Automotive Engineering Technician ID Calcium 9.3 (8.4-10.2) mg/dL Total Bilirubin 0.5 (0.2-1.3) mg/dL AST 31 (17-59) U/L ALT 36 (4-49) U/L Alkaline Phosphatase 78 (38-126) U/L Creatine Kinase 87 (55-170) U/L Troponin I <0.012 (0.000-0.034) ng/mL Total Protein 7.0 (6.3-8.2) g/dL Albumin 4.2 (3.5-5.0) g/dL Coronavirus (PCR) Not Detected (Not Detectd) - Radiology Data Radiology results: report reviewed, image reviewed (Imaging reviewed no acute findings there is evidence of sinusitis) Disposition Clinical Impression: Transient cerebral ischemia Disposition: ADMITTED IP TO THIS [facility] Condition: Fair Referrals: None,Stated [Primary Care Provider] - 1-2 days
--- NOTE | 2021-04-12 15:04 | CT ---
EXAMINATION TYPE: CT brain wo con for TPA DATE OF EXAM: 04/12/2021 COMPARISON: None HISTORY: Left eye blurred vision, left arm pain. History of clot to left arm per pt. CT DLP: 1081.[address] of the brain was performed. The ventricles, basal cisterns and sulci overlying the cerebral convexities demonstrate mild enlargem ent. There is no evidence for intracranial hemorrhage or sulcal effacement. There is decreased attenuation about the periventricular white matter and deep white matter of both c erebral hemispheres, compatible with chronic small vessel ischemia. Differential diagnosis does inclu de demyelination. No mass effects are seen.No midline shift. Osseous calvarium is intact. If symptoms persist consider MRI. IMPRESSION: 1. Age related atrophic and chronic small vessel ischemic change without acute intracranial process s een at this time.
[2021-04-12 15:12] LABS: Basophils # (A) 0.1 k/uL (0-0.2); Basophils % (A) 1 %; Eosinophils # (A) 0.3 k/uL (0-0.7); Eosinophils % (A) 3 %; HCT 43.2 % (39.0-53.0); HGB 14.1 gm/dL (13.0-17.5); Lymphocytes # (A) 3.5 k/uL (1.0-4.8); Lymphocytes % (A) 38 %; MCH 30.1 pg (25.0-35.0); MCHC 32.7 g/dL (31.0-37.0); MCV 92.2 fL (80.0-100.0); Mean Platelet Volume 7.9; Monocytes # (A) 0.5 k/uL (0-1.0); Monocytes % (A) 6 %; Neutrophils # (A) 4.7 k/uL (1.3-7.7); Neutrophils % (A) 51 %; Platelet Count 272 k/uL (150-450); RBC 4.69 m/uL (4.30-5.90); RDW 13.3 % (11.5-15.5); WBC 9.3 k/uL (3.8-10.6)
[2021-04-12 15:23] LABS: Glucose,Whole Blood 113 mg/dL (75-99)
[2021-04-12 15:25] LABS: ALT 36 U/L (4-49); AST 31 U/L (17-59); African American GFR (CKD) >90 (>60 ml/min/1.73 sqM); Albumin 4.2 g/dL (3.5-5.0); Alkaline Phosphatase 78 U/L (38-126); Anion Gap 9 mmol/L; Blood Urea Nitrogen 8 mg/dL (9-20); Calcium 9.3 mg/dL (8.4-10.2); Carbon Dioxide 22 mmol/L (22-30); Chloride 106 mmol/L (98-107); Creatine Kinase 87 U/L (55-170); Glucose 117 mg/dL (74-99); INR 0.9 (<1.2); Non-African American GFR(CKD) >90 (>60 ml/min/1.73 sqM); Potassium 4.6 mmol/L (3.5-5.1); Prothrombin Time 10.2 sec (9.0-12.0); Sodium 137 mmol/L (137-145); Total Bilirubin 0.5 mg/dL (0.2-1.3)
--- NOTE | 2021-04-12 15:34 | XR ---
EXAMINATION TYPE: XR chest 2V DATE OF EXAM: 04/12/2021 COMPARISON: 01/30/2020 HISTORY: Shortness of breath TECHNIQUE: Frontal and lateral views of the chest are obtained. FINDINGS: Scattered senescent parenchymal changes noted. Hyperinflation compatible with COPD. No evidence for infiltrate. No evidence for atelectasis. Heart size is stable. Mediastinal structures are stable and grossly unremarkable. No evidence for hilar prominence. Degenerative changes dorsal spine. IMPRESSION: 1. No evidence for acute pulmonary disease.
--- NOTE | 2021-04-12 15:58 | CT ---
EXAMINATION TYPE: CT angio head neck DATE OF EXAM: 04/12/2021 HISTORY: Left eye blurred vision, left arm pain. History of clot to left arm per pt. COMPARISON: CT brain same date CT DLP: 667.1 mGycm. Automated Exposure Control for Dose Reduction was Utilized. TECHNIQUE: CTA scan of the neck is performed with IV Contrast, patient injected with 65 mL of Isovue 370, axial images are obtained, coronal and sagittal reformatted images are reviewed. Three-D recons tructed images are created on an independent workstation and reviewed. FINDINGS: Carotid/Vascular Structures: The transverse thoracic aorta is patent, there is mild atheromatous delgadillo ge, the innominate, left and right common carotid, left and right subclavian, left and right vertebra l arteries are patent, vertebral arteries are codominant. No evident dissection. No stenosis of the p roximal internal carotid arteries by NASCET criteria. Anterior posterior circulation patent within the brain. There is no evident aneurysm, stenosis, disse ction, or embolus within the [place] of [place]. Other: Patient is post median sternotomy. There are inflammatory changes in the left maxillary and ri ght sphenoid sinus, correlate for acute sinusitis, inflammatory change also in the ethmoid air cells, frontal sinus. IMPRESSION: Correlate for sinusitis
[2021-04-12] MEDS: SODIUM CHLORIDE 0.9% 1,000 ML IV SCH (18:21)
[2021-04-12] MEDS ORDERED: lisinopriL 5 MG TAB PO SCH (19:00)
[2021-04-12] MEDS ORDERED: ATORVASTATIN 80 MG TAB PO SCH (19:00)
[2021-04-12] MEDS ORDERED: CLOPIDOGREL 75 MG TAB PO SCH (19:00)
[2021-04-12] MEDS: METOPROLOL TARTRATE 50 MG TAB PO SCH (22:41)
[2021-04-12] MEDS: RANOLAZINE 500 MG TAB.ER.12H PO SCH (22:49)
[2021-04-13] MEDS: SODIUM CHLORIDE 0.9% 1,000 ML IV SCH (04:12)
[2021-04-13 05:10] LABS: Cholesterol 121 mg/dL (<200); HDL Cholesterol 29 mg/dL (40-60); LDL Cholesterol,Calculated 67 mg/dL (0-99); Triglycerides 124 mg/dL (<150)
[2021-04-13] MEDS: RANOLAZINE 500 MG TAB.ER.12H PO SCH (08:07)
[2021-04-13] MEDS: METOPROLOL TARTRATE 50 MG TAB PO SCH (08:07)
[2021-04-13 08:46] VITALS: BP 127/80; PULSE 68; RESP 18; TEMP 97.7
--- NOTE | 2021-04-13 09:20 | P.CNNES ---
History of Present Illness Consult date: 04/13/21 Requesting physician: Pa Lakhani Reason for Consult: left sided weakness and numbness/tingling. Concern for stroke History of Present Illness: This is a 50-year-old gentleman with history of prior TIA (5 years ago with left sided weakness, numbness), CAD s/p CABG at the age of [age] years old, recent cardiac cath with stenting (1 stent) about two weeks ago, hypertension since his 30s, ex tobacco use and smoked for 20 years in which she stopped 2 years ago who presented to the emergency department on 04/12/2021 for left-sided weakness numbness tingling. Patient arrived to the hospital at around 1448 on 04/12/2021.Patient stated that yesterday he was working on his camper and then around 1 PM he noticed that the has his left side was weak upper and lower extremity left eye entire I was blurry, his left fingertips were numb as well as his left toes were numb and left-sided cheek was numb. The episode lasted for about 45 minutes then resolved. He had minor headache over the left frontal region associated with that but nothing significant. Denies of any photophobia, phonophobia. Denies of any difficulty getting his words out or swallowing. Patient had a similar episode about 5 years ago in which he went to an outside facility at ([facility]) and had work-up and was told TIA and according to patient was told due to "stress". Currently the patient denies of any further weakness, numbness or blurry vision. He feels is back to baseline. He said that he has a follow-up appointment with a banking pin adjuster in 1 week. Patient home medications aspirin 81 mg, Plavix 75 and Lipitor 80 mg daily and it appears he has not missed his medication. According to the patient used to smoke 2 packs a day for 20 years and he has stopped smoking in the about 2 years ago. Denies of any illicit drug use. It seems in the ED the patient's symptoms has been improving per the ED note. Some other workup in the hospital consisted of: Initial vital signs: Blood pressure of 130/91, heart rate of 96, respiratory of 20, initial temperature was recorded is 97.5 Fahrenheit, pulse ox of hypertension at room air. Next Patient had a stroke code activation and therefore had CT of the head which was reported as age-related atrophic and chronic small vessel ischemic change without acute intracranial process seen at this time. CT angiography of the head and neck was reported as correlate for sinusitis. In the body of the report it is mentioned anterior posterior circulation patent within the brain. There is no evidence of aneurysm, stenosis, dissection or embolus within the [place]. Also in the body report for the CTA of the neck is mentioned that no stenosis of the proximal internal carotid arteries by the set criteria. No evidence of dissection. I attempted to review the CT of the head and CT angiography of the head and neck but there is a problem with the system. EKG is reported as normal sinus rhythm. Cannot rule out inferior infarct, age undetermined. Abnormal EKG. Initial POC glucose is 113. Lipid panel is triglyceride 124, cholesterol 141, LDL 67 and HDL 29. Otherwise the CBC and a basic the chemistry panel seems unremarkable. As stated above seems per the ED note the patient symptoms has been improving and no TPA was given. Review of Systems Review of system: The 12 point system was reviewed and apparent positive and negative per HPI. Past Medical History Past Medical History: Chest Pain / Angina, CVA/TIA, Hyperlipidemia, Hypertension, Myocardial Infarction ([place]) Additional Past Medical History / Comment(s): pt states he had TIA approx five years ago Last Myocardial Infarction Date:: 05/2018 History of Any Multi-Drug Resistant Organisms: None Reported Past Surgical History: Coronary Bypass/CABG, Heart Catheterization With Stent Additional Past Surgical History / Comment(s): triple bypass 2002?, heart caths with about 6 stents Past Anesthesia/Blood Transfusion Reactions: No Reported Reaction Date of Last Stent Placement:: 2010? Past Psychological History: No Psychological Hx Reported Smoking Status: Former smoker Past Alcohol Use History: None Reported Additional Past Alcohol Use History / Comment(s): has smoked for 35 years, smokes about a pack and a half a day. Past Drug Use History: None Reported Medications and Allergies Home Medications Medication Instructions Recorded Confirmed Type Atorvastatin [Lipitor] 80 mg PO HS@0 01/30/20 04/12/21 History Clopidogrel Bisulfate [Plavix] 75 mg PO HS@1900 01/30/20 04/12/21 History Metoprolol Tartrate [Lopressor] 50 mg PO Q12H 01/30/20 04/12/21 History lisinopriL [Prinivil] 5 mg PO HS@0 01/30/20 04/12/21 History Aspirin 81 mg PO HS@1900 04/12/21 04/12/21 History Ranolazine [Ranexa] 1,000 mg PO Q12H 04/12/21 04/12/21 History Allergies Allergy/AdvReac Type Severity Reaction Status Date / Time Penicillins Allergy Rash/Hives Verified 04/12/21 16:04 Physical Examination - Vital Signs Vital Signs: Vital Signs Temp Pulse Pulse Resp BP BP Pulse Ox 04/13/21 01:24 98.1 F 66 20 114/61 96 04/12/21 20:17 98.0 F 77 16 145/86 98 04/12/21 18:00 73 16 124/82 99 04/12/21 17:42 73 16 126/79 99 04/12/21 17:00 69 16 144/82 99 04/12/21 16:30 77 18 124/80 99 04/12/21 16:15 97.5 F L 75 18 129/77 99 04/12/21 16:11 77 18 124/80 99 04/12/21 16:00 97.5 F L 77 18 129/80 99 04/12/21 15:45 97.5 F L 82 18 118/77 99 04/12/21 15:30 85 18 121/84 99 04/12/21 15:15 91 20 127/85 100 04/12/21 15:07 96 20 138/91 100 04/12/21 15:00 92 20 138/91 100 Intake and Output 04/12/21 04/13/21 04/13/21 22:59 06:59 14:59 Other: Voiding Method Toilet # Voids 1 Weight 92.079 kg GENERAL: The patient is lying in bed and is not in acute distress. CHEST: The heart rate is regular rate rhythm. No murmurs to auscultation. No carotid bruit bilaterally. LUNG: Clear to auscultation bilaterally no wheezing noted throughout. Not labored breathing. ABDOMEN/GI: Bowel sounds present in all 4 quadrants. No tenderness to palpation throughout. NEUROLOGICAL: Higher mental function: The patient is awake, alert, oriented to self, place and time. Patient is following commands. No aphasia and no neglect. Cranial nerves: The pupils are round, equal and reactive to light and accommodation. Visual suarez are full to confrontation throughout. Extraocular movement is intact no nystagmus is noted. Facial sensation is normal to touch throughout. The facial strength is normal throughout. Hearing is normal bilaterally to hand rub. Tongue is midline and moved [id number] without any difficulty. No dysarthria is noted. Shoulder shrug is normal bilaterally. Motor: Gait is deferred. The strength is 5 over 5 throughout. Normal tone and bulk. Cerebellum: Normal finger to nose heel to chin bilaterally. Sensation: Sensation is normal to touch throughout. Reflexes (right/left)2+ throughout. Plantars are downgoing bilaterally. Results Patterson virus PCR was not detected - Laboratory Findings CBC and BMP: 04/12/21 15:04 04/12/21 15:04 Abnormal Lab Findings: Abnormal Labs 04/12/21 04/12/21 04/12/21 15:02 15:04 15:04 BUN 8 L Glucose 117 H POC Glucose (mg/dL) 113 H HDL Cholesterol 29 L Assessment and Plan Assessment: Transient ischemic attack (with symptoms of Transient left-sided weakness (upper and lower extremity), left finger tips and toes numb, left eye blurry and left check numb lasting for 45 minutes). He has significant cardiac risk factors History of TIA (5 years ago with similar presentation as above) Recent cardiac cath about 2 weeks ago with 1 cardiac stent History of coronary artery disease status post CABG at the age of 32 Hypertension for the last 20 years X tobacco use (smoked 2PPD for 20 years and stopped 2 years ago) Plan: * CT of the head which was reported as age-related atrophic and chronic small vessel ischemic change without acute intracranial process seen at this time. * CT angiography of the head and neck was reported as correlate for sinusitis. In the body of the report it is mentioned anterior posterior circulation patent within the brain. There is no evidence of aneurysm, stenosis, dissection or embolus within the [place]. Also in the body report for the CTA of the neck is mentioned that no stenosis of the proximal internal carotid arteries by the set criteria. No evidence of dissection. * Lipid panel is triglyceride 124, cholesterol 141, LDL 67 and HDL 29. LDL goal in stroke is <70. * In the ED the patient was restarted on aspirin 325, Plavix 75mg daily. I notified the patient that I would like to discontinue Plavix and start him on Brilinta but he stated that his insurance will not cover it and he wants to stay on aspirin and Plavix, therefore I notified them that he needs to follow- up with the his banking pin adjuster and neurologist regarding to see whether his medication can be modified and of possible he can get assistance from being on Brilinta and aspirin. Continue Lipitor for 80mg daily for secondary stroke prophylaxis. * I ordered 2-D echo, TSH, hemoglobin A1c. * MRI of the brain is not needed from a neurology perspective since the his symptoms has resolved. * Ordered every 4 hours neuro checks. * Placed the patient on continuous cardiac monitoring * I ordered and and that monitor and for his banking pin adjuster as an outpatient to moderate. Will be beneficial if the patient is on a loop recorder as an outpatient. * PT, OT and ACADEMIC SUPPORT COORDINATOR are consulted * Patient stated that he does not want cardiology, consulted and he said that he'll follow up with the his banking pin adjuster within a week. * We'll defer the rest of the medical management to the primary team * Upon discharge the patient needs to follow-up with a neurologist as well as banking pin adjuster within a week. The plan is discussed with the patient's nurse. Thank you for the consultation. Wisam Stephens M.D. Neuro-hospitalist Time with Patient: Greater than 30
--- NOTE | 2021-04-13 12:02 | P.HPIM ---
History of Present Illness H&P Date: 04/13/21 Chief Complaint: Left-sided weakness, numbness and tingling Hypertension, history of TIA, and a former smoker that presented to the emergency room with left-sided weakness and tingling. Patient said that his symptoms started all of a sudden yesterday around 1 PM when he was at work. He reports symptoms only in his left side. He denies any headache or dizziness. Patient said that symptoms lasted approximately 45 minutes. Patient presented to the emergency room where he was evaluated and a computed tomography scan of the head showed no acute intracranial findings. CT angiography of the head and neck showed no acute findings either. Patient was placed in observation. He was seen and evaluated by neurology. Patient is maintained on aspirin and Plavix at home by his spiral spring winder. Neurology recommended switching Plavix to Blrllenta but patient refused as his insurance does not cover for it. Patient is maintained on Lipitor 80 mg daily at home. His LDL is 67. Patient was eager to be discharged from the hospital as his symptoms resolved and he has an edith ointment to follow-up with his spiral spring winder next week. He understand the full workup for his presentation is not complete yet. He is not interested in seeing a spiral spring winder here in the hospital at this time. An event monitor was ordered for the patient prior to discharge. He was advised to follow-up with a neurologist outpatient. He'll be discharged home in a stable condition. Review of Systems Review of system: 14 points review of systems were obtained and were negative except to what were mentioned in the HPI. Past Medical History Past Medical History: Chest Pain / Angina, CVA/TIA, Hyperlipidemia, Hypertension, Myocardial Infarction ([place]) Additional Past Medical History / Comment(s): pt states he had TIA approx five years ago Last Myocardial Infarction Date:: 05/2018 History of Any Multi-Drug Resistant Organisms: None Reported Past Surgical History: Coronary Bypass/CABG, Heart Catheterization With Stent Additional Past Surgical History / Comment(s): triple bypass 2002?, heart caths with about 6 stents Past Anesthesia/Blood Transfusion Reactions: No Reported Reaction Date of Last Stent Placement:: 2010? Past Psychological History: No Psychological Hx Reported Smoking Status: Former smoker Past Alcohol Use History: None Reported Additional Past Alcohol Use History / Comment(s): has smoked for 35 years, smokes about a pack and a half a day. Past Drug Use History: None Reported Medications and Allergies Home Medications Medication Instructions Recorded Confirmed Type Atorvastatin [Lipitor] 80 mg PO HS@1900 01/30/20 04/12/21 History Clopidogrel Bisulfate [Plavix] 75 mg PO HS@1900 01/30/20 04/12/21 History Metoprolol Tartrate [Lopressor] 50 mg PO Q12H 01/30/20 04/12/21 History lisinopriL [Prinivil] 5 mg PO HS@1900 01/30/20 04/12/21 History Aspirin 81 mg PO HS@1900 04/12/21 04/12/21 History Ranolazine [Ranexa] 1,000 mg PO Q12H 04/12/21 04/12/21 History Allergies Allergy/AdvReac Type Severity Reaction Status Date / Time Penicillins Allergy Rash/Hives Verified 04/12/21 16:04 Physical Exam Vitals: Vital Signs Temp Pulse Pulse Resp BP BP Pulse Ox 04/13/21 07:25 97.7 F 68 18 127/80 98 04/13/21 01:24 98.1 F 66 20 114/61 96 04/12/21 20:17 98.0 F 77 16 145/86 98 04/12/21 18:00 73 16 124/82 99 04/12/21 17:42 73 16 126/79 99 04/12/21 17:00 69 16 144/82 99 04/12/21 16:30 77 18 124/80 99 04/12/21 16:15 97.5 F L 75 18 129/77 99 04/12/21 16:11 77 18 124/80 99 04/12/21 16:00 97.5 F L 77 18 129/80 99 04/12/21 15:45 97.5 F L 82 18 118/77 99 04/12/21 15:30 85 18 121/84 99 04/12/21 15:15 91 20 127/85 100 04/12/21 15:07 96 20 138/91 100 04/12/21 15:00 92 20 138/91 100 Intake and Output 04/12/21 04/13/21 04/13/21 22:59 06:59 14:59 Other: Voiding Method Toilet Toilet # Voids 1 Weight 92.079 kg General: The patient is awake and alert, in no distress Eye: there is normal conjunctiva bilaterally. Neck: The neck is supple, there is no JVD. Cardiovascular: Normal S1-S2, no S3-S4, no murmurs. Respiratory: Lungs clear to auscultation bilaterally Gastrointestinal: Abdomen is soft, nontender Musculoskeletal: There is no pedal edema. Neurological:. Speech is normal. Skin: Skin is warm and dry Results CBC & Chem 7: 04/12/21 15:04 04/12/21 15:04 Labs: Abnormal Lab Results - Last 24 Hours (Table) 04/12/21 04/12/21 04/12/21 Range/Units 15:02 15:04 15:04 BUN 8 L (9-20) mg/dL Glucose 117 H (74-99) mg/dL POC Glucose (mg/dL) 113 H (75-99) mg/dL HDL Cholesterol 29 L (40-60) mg/dL Thrombosis Risk Factor Assmnt - Choose All That Apply Any of the Below Risk Factors Present?: Yes Each Factor Represents 1 point: Acute MD, Age 41-60 years Thrombosis Risk Factor Assessment Total Risk Factor Score: 2 Thrombosis Risk Factor Assessment Level: Low Risk Assessment and Plan Assessment: Hypertension, history of TIA, and a former smoker that presented to the emergency room with left-sided weakness and tingling. Patient said that his symptoms started all of a sudden yesterday around 1 PM when he was at work. He reports symptoms only in his left side. He denies any headache or dizziness. Patient said that symptoms lasted approximately 45 minutes. Patient presented to the emergency room where he was evaluated and a computed tomography scan of the head showed no acute intracranial findings. CT angiography of the head and neck showed no acute findings either. Patient was placed in observation. He was seen and evaluated by neurology. Patient is maintained on aspirin and Plavix at home by his spiral spring winder. Neurology recommended switching Plavix to Blrllenta but patient refused as his insurance does not cover for it. Patient is maintained on Lipitor 80 mg daily at home. His LDL is 67. Patient was eager to be discharged from the hospital as his symptoms resolved and he has an appointment to follow-up with his spiral spring winder next week. He understand the full workup for his presentation is not complete yet. He is not interested in seeing a spiral spring winder here in the hospital at this time. An event monitor was ordered for the patient prior to discharge. He was advised to follow-up with a neurologist outpatient. He'll be discharged home in a stable condition.
--- NOTE | 2021-04-13 13:52 | ECHOF ---
Referral Reason:tia. Peform with bubble study MEASUREMENTS -------- HEIGHT: 175.3 cm WEIGHT: 92.1 kg BP: RVIDd: 2.6 cm (< 3.3) IVSd: 1.2 cm (0.6 - 1.1) LVIDd: 4.8 cm (3.9 - 5.3) LVPWd: 1.2 cm (0.6 - 1.1) IVSs: 1.5 cm LVIDs: 3.9 cm LVPWs: 1.3 cm LA Diam: 3.7 cm (2.7 - 3.8) Ao Diam: 2.7 cm (2.0 - 3.7) AV Cusp: 1.7 cm (1.5 - 2.6) LA Diam: 4.2 cm (2.7 - 3.8) MV EXCURSION: 21.866 mm (> 18.000) MV EF SLOPE: 125 mm/s (70 - 150) EPSS: 0.2 cm MV E Sukhjinder: 0.76 m/s MV DecT: 209 ms MV A Sukhjinder: 0.69 m/s MV E/A Ratio: 1.11 RAP: 5.00 mmHg RVSP: 19.13 mmHg FINDINGS -------- Sinus rhythm. This was a technically good study. The left ventricular size is normal. Overall left ventricular systolic function is mildly impaired with, an EF between 45 - 50 %. Inferior Hypokinesis The right ventricle is normal in size. The left atrial size is normal. The right atrial size is normal. Agitated Saline study is negative, no crossing at atrial level or right to left shunt noted. The aortic valve is trileaflet, and appears structurally normal. No aortic stenosis or regurgitation. Mild mitral regurgitation is present. Mild tricuspid regurgitation present. Right ventricular systolic pressure is normal at < 35 mmHg. Trace/mild (physiologic) pulmonic regurgitation. The aortic root size is normal. There is no pericardial effusion. CONCLUSIONS -------- 1. The left ventricular size is normal. 2. Overall left ventricular systolic function is mildly impaired with, an EF between 45 - 50 %. 3. Inferior Hypokinesis 4. The right ventricle is normal in size. 5. The left atrial size is normal. 6. The right atrial size is normal. 7. Agitated Saline study is negative, no crossing at atrial level or right to left shunt noted. 8. The aortic valve is trileaflet, and appears structurally normal. No aortic stenosis or regurgitati on. 9. Mild mitral regurgitation is present. 10. Mild tricuspid regurgitation present. 11. Trace/mild (physiologic) pulmonic regurgitation. 12. The aortic root size is normal. 13. There is no pericardial effusion. WEB PRESS OPERATOR APPRENTICE: Mary Dean RDCS
[2021-04-13 14:46] LABS: Hemoglobin A1C 5.8 % (4.0-6.0)
[2021-04-14] MEDS ORDERED: ASPIRIN 325 MG TAB PO SCH (09:00)
== END 2021-04-13 12:24 | disposition home or self-care (01) ==
LOC: EC 14:48 → 6NMEDSUR 17:52
PROVIDERS: ADMIT Internal Medicine; ATTEND Internal Medicine
DX: R53.1 Weakness (principal); R20.2 Paresthesia of skin; H53.8 Other visual disturbances; M79.602 Pain in left arm; I10 Essential (primary) hypertension; E78.5 Hyperlipidemia, unspecified; I25.10 Atherosclerotic heart disease of native coronary artery without angina pectoris; I25.2 Old myocardial infarction; Z20.822 Contact with and (suspected) exposure to COVID-19; Z79.02 Long term (current) use of antithrombotics/antiplatelets; Z79.82 Long term (current) use of aspirin; Z79.899 Other long term (current) drug therapy; Z88.0 Allergy status to penicillin; Z95.1 Presence of aortocoronary bypass graft; Z95.5 Presence of coronary angioplasty implant and graft; Z86.73 Personal history of transient ischemic attack (TIA), and cerebral infarction without residual deficits; Z87.891 Personal history of nicotine dependence
CPT/HCPCS: 96360; 96361; 99285; 36415; 93005; 93306; 93270; 80061; 80053; 84443; 82550; 84484; 85025; 85610; 85730; 83036; 87635; 71046; 70496; 70450; 70498; G0378 ×2; Q9967

== ENCOUNTER 2022-08-22 08:30 | Emergency (ER) | payer MEDICARE ==
[2022-08-22 08:35] VITALS: TEMP 97.7
[2022-08-22] MEDS ORDERED: KETOROLAC 15 MG/ML 1 ML VIAL IVP STA (09:21)
--- NOTE | 2022-08-22 09:27 | ED ---
General Adult HPI - General Chief complaint: Recheck/Abnormal Lab/Rx Stated complaint: Chest, arm & leg pains Time Seen by Provider: 08/22/22 08:35 Source: patient, RN notes reviewed, old records reviewed Mode of arrival: ambulatory Limitations: no limitations - History of Present Illness Initial comments: This a 51-year-old male presents emergency department with past medical history significant for bypass surgery multiple stent. Patient also states he has high blood pressure high cholesterol and has been recently diagnosed with melanoma. Patient comes in today because for the last month his joints been aching more he says he has psoriasis and has joint aches all the time but over the last month has gotten worse in the last week he continues to worsen. Patient states he also has a noted over the last week with this associated joint pain he has been having elevated blood pressure his highest reading was 170/101. Patient denies any chest pain any palpitations. Patient denies any difficulty breathing shortest breath per patient denies any recent fever chills or cough. Patient states he did not get the code vaccine. Patient states he does continue to smoke. Patient denies any abdominal pain patient denies nausea vomiting or diarrhea. Patient states she has a mild headache occasionally but he associates that with the high blood pressure. Patient denies any blurred vision patient denies any numbness or weakness but he states occasionally he has tingling in all of his extremities. - Related Data Home Medications Medication Instructions Recorded Confirmed Atorvastatin [Lipitor] 80 mg PO PC-SUPPER 01/30/20 08/22/22 Clopidogrel Bisulfate [Plavix] 75 mg PO PC-SUPPER 01/30/20 08/22/22 Metoprolol Tartrate [Lopressor] 50 mg PO PC-SUPPER 01/30/20 08/22/22 lisinopriL [Prinivil] 5 mg PO PC-SUPPER 01/30/20 08/22/22 Multivitamins, Thera [Multivitamin 1 tab PO PC-SUPPER 08/22/22 08/22/22 (formulary)] Previous Rx's Medication Instructions Recorded Ketorolac [Toradol] 10 mg PO Q6HR #15 tab 08/22/22 Allergies Allergy/AdvReac Type Severity Reaction Status Date / Time Penicillins Allergy Rash/Hives Verified 08/22/22 09:53 Review of Systems ROS Statement: Those systems with pertinent positive or pertinent negative responses have been documented in the HPI. ROS Other: All systems not noted in ROS Statement are negative. Past Medical History Past Medical History: Chest Pain / Angina, CVA/TIA, Hyperlipidemia, Hypertension, Myocardial Infarction (CT) Additional Past Medical History / Comment(s): pt states he had TIA approx five years ago Last Myocardial Infarction Date:: 05/2018 History of Any Multi-Drug Resistant Organisms: None Reported Past Surgical History: Coronary Bypass/CABG, Heart Catheterization With Stent Additional Past Surgical History / Comment(s): triple bypass 2002?, heart caths with about 6 stents Past Anesthesia/Blood Transfusion Reactions: No Reported Reaction Date of Last Stent Placement:: 2010? Past Psychological History: No Psychological Hx Reported Smoking Status: Former smoker Past Alcohol Use History: None Reported Past Drug Use History: None Reported General Exam - General Exam Comments Initial Comments: GENERAL: Patient is well-developed and well-nourished. Patient is nontoxic and well- hydrated and is in mild distress. ENT: Neck is soft and supple. No significant lymphadenopathy is noted. Oropharynx is clear. Moist mucous membranes. Neck has full range of motion without eliciting any pain. EYES: The sclera were anicteric and conjunctiva were pink and moist. Extraocular movements were intact and pupils were equal round and reactive to light. Eyelids were unremarkable. PULMONARY: Unlabored respirations. Good breath sounds bilaterally. No audible rales rhonchi or wheezing was noted. CARDIOVASCULAR: There is a regular rate and rhythm without any murmurs gallops or rubs. ABDOMEN: Soft and nontender with normal bowel sounds. SKIN: Skin is clear with no lesions or rashes and otherwise unremarkable. NEUROLOGIC: Patient is alert and oriented x3. Cranial nerves II through XII are grossly intact. Motor and sensory are also intact. Normal speech, volume and content. Symmetrical smile. MUSCULOSKELETAL: Normal extremities with adequate strength and full range of motion. No lower extremity swelling or edema. No calf tenderness. LYMPHATICS: No significant lymphadenopathy is noted PSYCHIATRIC: Normal psychiatric evaluation. Limitations: no limitations Course Vital Signs 08/22/22 08/22/22 08:32 12:31 Temperature 97.7 F 97.7 F Pulse Rate 107 H 79 Respiratory 20 18 Rate Blood Pressure 176/93 129/87 O2 Sat by Pulse 99 96 Oximetry Medical Decision Making - Medical Decision Making EKG shows sinus rhythm with occasional PVC at 91 bpm MT interval 270 dresses 99 QT interval 372 QTC is 421. Patient's current blood pressure is 137/99. patient received Toradol in the emergency department patient states he was feeling better his joints did not hurt as much. Patient's blood pressure was within normal range throughout his ED stay. - Lab Data Result diagrams: 08/22/22 08:43 08/22/22 08:43 Lab Results 08/22/22 08/22/22 08/22/22 Range/Units 08:43 08:43 08:43 WBC 12.4 H (3.8-10.6) k/uL RBC 4.75 (4.30-5.90) m/uL Hgb 14.9 (13.0-17.5) gm/dL Hct 44.6 (39.0-53.0) % MCV 93.8 (80.0-100.0) fL MCH 31.3 (25.0-35.0) pg MCHC 33.4 (31.0-37.0) g/dL RDW 12.2 (11.5-15.5) % Plt Count 269 (150-450) k/uL MPV 8.4 Neutrophils % 58 % Lymphocytes % 31 % Monocytes % 7 % Eosinophils % 2 % Basophils % 1 % Neutrophils # 7.1 (1.3-7.7) k/uL Lymphocytes # 3.8 (1.0-4.8) k/uL Monocytes # 0.9 (0-1.0) k/uL Eosinophils # 0.3 (0-0.7) k/uL Basophils # 0.1 (0-0.2) k/uL PT 10.4 (9.0-12.0) sec INR 1.0 (<1.2) APTT 27.6 (22.0-30.0) sec Sodium 138 (137-145) mmol/L Potassium 4.0 (3.5-5.1) mmol/L Chloride 104 (98-107) mmol/L Carbon Dioxide 20 L (22-30) mmol/L Anion Gap 14 mmol/L BUN 15 (9-20) mg/dL Creatinine 0.78 (0.66-1.25) mg/dL Est GFR (CKD-EPI)AfAm >90 (>60 ml/min/1.73 sqM) Est GFR (CKD-EPI)NonAf >90 (>60 ml/min/1.73 sqM) Glucose 120 H (74-99) mg/dL Calcium 9.7 (8.4-10.2) mg/dL Magnesium 2.0 (1.6-2.3) mg/dL Total Bilirubin 1.0 (0.2-1.3) mg/dL AST 32 (17-59) U/L ALT 36 (4-49) U/L Alkaline Phosphatase 108 (38-126) U/L Troponin I (0.000-0.034) ng/mL Total Protein 7.8 (6.3-8.2) g/dL Albumin 5.0 (3.5-5.0) g/dL Coronavirus (PCR) (Not Detectd) 08/22/22 08/22/22 Range/Units 08:43 09:25 WBC (3.8-10.6) k/uL RBC (4.30-5.90) m/uL Hgb (13.0-17.5) gm/dL Hct (39.0-53.0) % MCV (80.0-100.0) fL MCH (25.0-35.0) pg MCHC (31.0-37.0) g/dL RDW (11.5-15.5) % Plt Count (150-450) k/uL MPV Neutrophils % % Lymphocytes % % Monocytes % % Eosinophils % % Basophils % % Neutrophils # (1.3-7.7) k/uL Lymphocytes # (1.0-4.8) k/uL Monocytes # (0-1.0) k/uL Eosinophils # (0-0.7) k/uL Basophils # (0-0.2) k/uL PT (9.0-12.0) sec INR (<1.2) APTT (22.0-30.0) sec Sodium (137-145) mmol/L Potassium (3.5-5.1) mmol/L Chloride (98-107) mmol/L Carbon Dioxide (22-30) mmol/L Anion Gap mmol/L BUN (9-20) mg/dL Creatinine (0.66-1.25) mg/dL Est GFR (CKD-EPI)AfAm (>60 ml/min/1.73 sqM) Est GFR (CKD-EPI)NonAf (>60 ml/min/1.73 sqM) Glucose (74-99) mg/dL Calcium (8.4-10.2) mg/dL Magnesium (1.6-2.3) mg/dL Total Bilirubin (0.2-1.3) mg/dL AST (17-59) U/L ALT (4-49) U/L Alkaline Phosphatase (38-126) U/L Troponin I <0.012 (0.000-0.034) ng/mL Total Protein (6.3-8.2) g/dL Albumin (3.5-5.0) g/dL Coronavirus (PCR) Not Detected (Not Detectd) Disposition Clinical Impression: Joint pain, High blood pressure Disposition: HOME SELF-CARE Additional Instructions: Patient received a primary medical care doctor. Patient continued to Toradol as prescribed. Patient should monitor his blood pressure breakfast lunch dinner and at bedtime. Patient should stop smoking Prescriptions: Ketorolac [Toradol] 10 mg PO Q6HR #15 tab Is patient prescribed a controlled substance at d/c from ED?: No Referrals: None,Stated [Primary Care Provider] - 1-2 days Time of Disposition: 12:26
[2022-08-22 09:36] LABS: Basophils # (A) 0.1 k/uL (0-0.2); Basophils % (A) 1 %; Eosinophils # (A) 0.3 k/uL (0-0.7); Eosinophils % (A) 2 %; HCT 44.6 % (39.0-53.0); HGB 14.9 gm/dL (13.0-17.5); Lymphocytes # (A) 3.8 k/uL (1.0-4.8); Lymphocytes % (A) 31 %; MCH 31.3 pg (25.0-35.0); MCHC 33.4 g/dL (31.0-37.0); MCV 93.8 fL (80.0-100.0); Mean Platelet Volume 8.4; Monocytes # (A) 0.9 k/uL (0-1.0); Monocytes % (A) 7 %; Neutrophils # (A) 7.1 k/uL (1.3-7.7); Neutrophils % (A) 58 %; Platelet Count 269 k/uL (150-450); RBC 4.75 m/uL (4.30-5.90); RDW 12.2 % (11.5-15.5); WBC 12.4 k/uL (3.8-10.6)
[2022-08-22 09:44] LABS: ALT 36 U/L (4-49); AST 32 U/L (17-59); African American GFR (CKD) >90 (>60 ml/min/1.73 sqM); Alkaline Phosphatase 108 U/L (38-126); Anion Gap 14 mmol/L; Blood Urea Nitrogen 15 mg/dL (9-20); Calcium 9.7 mg/dL (8.4-10.2); Carbon Dioxide 20 mmol/L (22-30); Chloride 104 mmol/L (98-107); Glucose 120 mg/dL (74-99); Non-African American GFR(CKD) >90 (>60 ml/min/1.73 sqM); Sodium 138 mmol/L (137-145); Total Protein 7.8 g/dL (6.3-8.2)
--- NOTE | 2022-08-22 09:52 | XR ---
EXAMINATION TYPE: XR chest 2V DATE OF EXAM: 08/22/2022 9:33 AM COMPARISON: Chest radiographs from 04/12/2021. TECHNIQUE: XR chest 2V Frontal and lateral views of the chest. CLINICAL INDICATION:Male, 51 years old with history of Chest Pain; FINDINGS: Lungs/Pleura: There is no evidence of pleural effusion, focal consolidation, or pneumothorax. Hyperi nflation compatible with COPD. Scattered senescent parenchymal changes. Pulmonary vascularity: Unremarkable. Heart/mediastinum: Cardiomediastinal silhouette is unremarkable. Musculoskeletal: No acute osseous pathology. Midline sternotomy wires are noted and stable. IMPRESSION: 1. No acute cardiopulmonary disease/process. 2. COPD changes.
[2022-08-22 09:53] LABS: Partial Thromboplastin Time 27.6 sec (22.0-30.0); Prothrombin Time 10.4 sec (9.0-12.0)
[2022-08-22 12:32] VITALS: BP 129/87; PULSE 79; RESP 18
== END 2022-08-22 12:40 | disposition home or self-care (01) ==
LOC: EC 08:30
DX: I10 Essential (primary) hypertension (principal); M25.50 Pain in unspecified joint; F17.200 Nicotine dependence, unspecified, uncomplicated; E78.5 Hyperlipidemia, unspecified; I25.2 Old myocardial infarction; Z86.73 Personal history of transient ischemic attack (TIA), and cerebral infarction without residual deficits; Z20.822 Contact with and (suspected) exposure to COVID-19; Z79.02 Long term (current) use of antithrombotics/antiplatelets; Z79.899 Other long term (current) drug therapy; Z88.0 Allergy status to penicillin
CPT/HCPCS: 36415; 93005; 80053; 83735; 84484; 85025; 85610; 85730; 87635; 71046; 99284; 96374; J1885

== ENCOUNTER 2023-12-19 00:49 | Observation (INO) | payer MEDICARE ==
[2023-12-19] MEDS ORDERED: SODIUM CHLORIDE 0.9% 500 ML 500 ML IV STA (01:12)
[2023-12-19] MEDS ORDERED: ACETAMINOPHEN TAB 325 MG TAB PO STA (01:18)
[2023-12-19 01:30] LABS: Basophils # (A) 0.1 k/uL (0-0.2); Basophils % (A) 1 %; Eosinophils # (A) 0.2 k/uL (0-0.7); Eosinophils % (A) 2 %; HCT 39.7 % (39.0-53.0); HGB 13.6 gm/dL (13.0-17.5); Lymphocytes # (A) 4.2 k/uL (1.0-4.8); Lymphocytes % (A) 43 %; MCH 31.3 pg (25.0-35.0); MCHC 34.1 g/dL (31.0-37.0); MCV 91.6 fL (80.0-100.0); Mean Platelet Volume 8.5; Monocytes # (A) 0.9 k/uL (0-1.0); Monocytes % (A) 9 %; Neutrophils # (A) 4.2 k/uL (1.3-7.7); Neutrophils % (A) 43 %; Platelet Count 325 k/uL (150-450); RBC 4.34 m/uL (4.30-5.90); RDW 12.5 % (11.5-15.5)
--- NOTE | 2023-12-19 01:34 | ED ---
General Adult HPI - General Source: EMS Mode of arrival: EMS <Rosa Sánchez - Last Filed: 12/19/23 04:29> <Herrera Hodges - Last Filed: 12/19/23 07:27> - General Chief complaint: Shortness of Breath Stated complaint: Dizziness Time Seen by Provider: 12/19/23 01:00 - History of Present Illness Initial comments: 53-year-old male presenting with chief complaint of chest pain. Patient reports that he had stent placement at [facility] on . He states that since then he has had a sharp pins and needles like pain over the center of the chest. He admits to shortness of breath. He states that he has been sweating profusely. He admits to nausea. He states that today he felt as he was going to pass out, he lowered himself to the ground and had some blurry vision in his left eye. He admits to cough which he has had for several weeks and seems to be improving. He denies palpitations. No lower extremity swelling. No abdominal pain. No known fevers. (Rosa Sánchez) - Related Data Home Medications Medication Instructions Recorded Confirmed Atorvastatin [Lipitor] 80 mg PO PC-SUPPER 01/30/20 08/22/22 Clopidogrel Bisulfate [Plavix] 75 mg PO PC-SUPPER 01/30/20 08/22/22 Metoprolol Tartrate [Lopressor] 50 mg PO PC-SUPPER 01/30/20 08/22/22 lisinopriL [Prinivil] 5 mg PO PC-SUPPER 01/30/20 08/22/22 Multivitamins, Thera [Multivitamin 1 tab PO PC-SUPPER 08/22/22 08/22/22 (formulary)] Previous Rx's Medication Instructions Recorded Ketorolac [Toradol] 10 mg PO Q6HR #15 tab 08/22/22 Allergies Allergy/AdvReac Type Severity Reaction Status Date / Time Penicillins Allergy Rash/Hives Verified 12/19/23 00:54 Review of Systems ROS Other: All systems not noted in ROS Statement are negative. <Rosa Sánchez - Last Filed: 12/19/23 04:29> ROS Other: All systems not noted in ROS Statement are negative. <Herrera Hodges - Last Filed: 12/19/23 07:27> ROS Statement: Those systems with pertinent positive or pertinent negative responses have been documented in the HPI. Past Medical History Past Medical History: Chest Pain / Angina, CVA/TIA, Hyperlipidemia, Hypertension, Myocardial Infarction ([place]) Additional Past Medical History / Comment(s): pt states he had TIA approx five years ago Last Myocardial Infarction Date:: 05/2018 History of Any Multi-Drug Resistant Organisms: None Reported Past Surgical History: Coronary Bypass/CABG, Heart Catheterization With Stent Additional Past Surgical History / Comment(s): triple bypass 2002?, heart caths with about 6 stents Past Anesthesia/Blood Transfusion Reactions: No Reported Reaction Date of Last Stent Placement:: 2010? Past Psychological History: No Psychological Hx Reported Smoking Status: Former smoker Past Alcohol Use History: None Reported Past Drug Use History: None Reported <Rosa Sánchez - Last Filed: 12/19/23 04:29> General Exam General appearance: alert, in no apparent distress Head exam: Present: atraumatic, normocephalic Eye exam: Present: normal appearance, PERRL, EOMI. Absent: periorbital swelling Pupils: Present: normal accommodation Neck exam: Present: normal inspection Respiratory exam: Present: normal lung sounds bilaterally. Absent: respiratory distress, wheezes, rales, rhonchi, stridor Cardiovascular Exam: Present: regular rate, normal rhythm, normal heart sounds. Absent: systolic murmur, diastolic murmur, rubs, gallop, clicks Extremities exam: Absent: pedal edema Neurological exam: Present: alert, oriented X3 Expanded Patient oriented to: Present: person, place, time Speech: Present: fluid speech Cranial nerves: EOM's Intact: Normal Eye Response: (4) open spontaneously Motor Response: (6) obeys commands Verbal Response: (5) oriented [place] Total: 15 Psychiatric exam: Present: normal affect, normal mood Skin exam: Present: diaphoretic <Rosa Sánchez - Last Filed: 12/19/23 04:29> Course Vital Signs 12/19/23 12/19/23 12/19/23 00:51 01:00 02:00 Temperature 99.9 F H Pulse Rate 80 82 76 Respiratory 19 17 18 Rate Blood Pressure 127/78 124/81 119/80 O2 Sat by Pulse 100 100 100 Oximetry 12/19/23 12/19/23 12/19/23 03:07 05:20 06:00 Temperature 98.0 F Pulse Rate 62 60 Respiratory 18 10 L Rate Blood Pressure 111/73 111/73 O2 Sat by Pulse 95 99 Oximetry 12/19/23 07:00 Temperature Pulse Rate 70 Respiratory 13 Rate Blood Pressure 100/66 O2 Sat by Pulse 99 Oximetry EKG Findings - EKG Comments: EKG Findings:: Sinus rhythm ventricular rate 78. [place] interval 172. QRS 106. QT 333. QTC 367. Normal axis. No ST deviation. <Rosa Sánchez - Last Filed: 12/19/23 04:29> Medical Decision Making - Lab Data Result diagrams: 12/19/23 01:20 12/19/23 01:20 <Rosa Sánchez - Last Filed: 12/19/23 04:29> - Lab Data Result diagrams: 12/19/23 01:20 12/19/23 01:20 <Herrera Hodges - Last Filed: 12/19/23 07:27> - Medical Decision Making CTA of the chest is pending. Patient is signed out to my attending Dr. Hodges for further management and disposition (Rosa Sánchez) CT angiography of the chest reviewed by me showing no pulmonary embolism or any other significant acute processes. he'll be admitted for cardiac monitoring. (Herrera Hodges) - Lab Data Lab Results 12/19/23 12/19/23 12/19/23 Range/Units 01:20 01:20 01:20 WBC 10.0 (3.8-10.6) k/uL RBC 4.34 (4.30-5.90) m/uL Hgb 13.6 (13.0-17.5) gm/dL Hct 39.7 (39.0-53.0) % MCV 91.6 (80.0-100.0) fL MCH 31.3 (25.0-35.0) pg MCHC 34.1 (31.0-37.0) g/dL RDW 12.5 (11.5-15.5) % Plt Count 325 (150-450) k/uL MPV 8.5 Neutrophils % 43 % Lymphocytes % 43 % Monocytes % 9 % Eosinophils % 2 % Basophils % 1 % Neutrophils # 4.2 (1.3-7.7) k/uL Lymphocytes # 4.2 (1.0-4.8) k/uL Monocytes # 0.9 (0-1.0) k/uL Eosinophils # 0.2 (0-0.7) k/uL Basophils # 0.1 (0-0.2) k/uL PT 10.7 (10.0-12.5) sec INR 1.0 (<1.2) APTT 30.9 H (22.0-30.0) sec D-Dimer 0.67 H (<0.60) mg/L FEU Sodium 141 (137-145) mmol/L Potassium 4.0 (3.5-5.1) mmol/L Chloride 110 H (98-107) mmol/L Carbon Dioxide 20 L (22-30) mmol/L Anion Gap 11 mmol/L BUN 15 (9-20) mg/dL Creatinine 0.83 (0.66-1.25) mg/dL Est GFR (CKD-EPI)AfAm >90 (>60 ml/min/1.73 sqM) Est GFR (CKD-EPI)NonAf >90 (>60 ml/min/1.73 sqM) Glucose 103 H (74-99) mg/dL Plasma Lactic Acid Nadeem (0.7-2.0) mmol/L Calcium 9.1 (8.4-10.2) mg/dL Magnesium 1.9 (1.6-2.3) mg/dL Total Bilirubin 0.7 (0.2-1.3) mg/dL AST 76 H (17-59) U/L ALT 99 H (4-49) U/L Alkaline Phosphatase 74 (38-126) U/L Troponin I (0.000-0.034) ng/mL Total Protein 7.6 (6.3-8.2) g/dL Albumin 4.2 (3.5-5.0) g/dL Influenza Type A (PCR) (Not Detectd) Influenza Type B (PCR) (Not Detectd) RSV (PCR) (Not Detectd) SARS-CoV-2 (PCR) (Not Detectd) 12/19/23 12/19/23 12/19/23 Range/Units 01:20 01:20 01:20 WBC (3.8-10.6) k/uL RBC (4.30-5.90) m/uL Hgb (13.0-17.5) gm/dL Hct (39.0-53.0) % MCV (80.0-100.0) fL MCH (25.0-35.0) pg MCHC (31.0-37.0) g/dL RDW (11.5-15.5) % Plt Count (150-450) k/uL MPV Neutrophils % % Lymphocytes % % Monocytes % % Eosinophils % % Basophils % % Neutrophils # (1.3-7.7) k/uL Lymphocytes # (1.0-4.8) k/uL Monocytes # (0-1.0) k/uL Eosinophils # (0-0.7) k/uL Basophils # (0-0.2) k/uL PT (10.0-12.5) sec INR (<1.2) APTT (22.0-30.0) sec D-Dimer (<0.60) mg/L FEU Sodium (137-145) mmol/L Potassium (3.5-5.1) mmol/L Chloride (98-107) mmol/L Carbon Dioxide (22-30) mmol/L Anion Gap mmol/L BUN (9-20) mg/dL Creatinine (0.66-1.25) mg/dL Est GFR (CKD-EPI)AfAm (>60 ml/min/1.73 sqM) Est GFR (CKD-EPI)NonAf (>60 ml/min/1.73 sqM) Glucose (74-99) mg/dL Plasma Lactic Acid Nadeem 1.6 (0.7-2.0) mmol/L Calcium (8.4-10.2) mg/dL Magnesium (1.6-2.3) mg/dL Total Bilirubin (0.2-1.3) mg/dL AST (17-59) U/L ALT (4-49) U/L Alkaline Phosphatase (38-126) U/L Troponin I <0.012 (0.000-0.034) ng/mL Total Protein (6.3-8.2) g/dL Albumin (3.5-5.0) g/dL Influenza Type A (PCR) Detected A (Not Detectd) Influenza Type B (PCR) Not Detected (Not Detectd) RSV (PCR) Not Detected (Not Detectd) SARS-CoV-2 (PCR) Detected A (Not Detectd) Disposition Time of Disposition: 04:30 <Rosa Sánchez - Last Filed: 12/19/23 04:29> <Herrera Hodges - Last Filed: 12/19/23 07:27> Clinical Impression: Chest pain Disposition: ADMITTED IP TO THIS HOSP Condition: Fair Referrals: None,Stated [Primary Care Provider] - 1-2 days
[2023-12-19 01:45] LABS: Partial Thromboplastin Time 30.9 sec (22.0-30.0); Prothrombin Time 10.7 sec (10.0-12.5)
[2023-12-19 02:34] LABS: ALT 99 U/L (4-49); African American GFR (CKD) >90 (>60 ml/min/1.73 sqM); Albumin 4.2 g/dL (3.5-5.0); Anion Gap 11 mmol/L; Blood Urea Nitrogen 15 mg/dL (9-20); Calcium 9.1 mg/dL (8.4-10.2); Carbon Dioxide 20 mmol/L (22-30); Chloride 110 mmol/L (98-107); Glucose 103 mg/dL (74-99); Non-African American GFR(CKD) >90 (>60 ml/min/1.73 sqM); Sodium 141 mmol/L (137-145); Total Bilirubin 0.7 mg/dL (0.2-1.3); Total Protein 7.6 g/dL (6.3-8.2)
[2023-12-19 02:43] LABS: AST 76 U/L (17-59); Alkaline Phosphatase 74 U/L (38-126); Magnesium 1.9 mg/dL (1.6-2.3)
--- NOTE | 2023-12-19 02:45 | XR ---
EXAM: XR Chest, 2 Views CLINICAL HISTORY: ITS.REASON XR Reason: difficulty breathing TECHNIQUE: Frontal and lateral views of the chest. COMPARISON: No relevant prior studies available. FINDINGS: Lungs: Pulmonary vascular congestion. No consolidation. Pleural space: Unremarkable. No pneumothorax. Heart: Cardiomegaly. Mediastinum: Unremarkable. Normal mediastinal contour. Bones/joints: Sternotomy wires. No acute fracture. IMPRESSION: Mild pulmonary vascular congestion.
[2023-12-19] MEDS ORDERED: ONDANSETRON 4 MG/2 ML VIAL IVP STA (02:53)
--- NOTE | 2023-12-19 03:25 | CT ---
EXAM: CT Head Without Intravenous Contrast CLINICAL HISTORY: ITS.REASON CT Reason: near-syncope, blurry vision TECHNIQUE: Axial computed tomography images of the head/brain without intravenous contrast. CTDI is 49.1 mGy and DLP is 1167.4 mGy-cm. This CT exam was performed using one or more of the following dose reduction techniques: automated exposure control, adjustment of the mA and/or kV according to patient size, and/or use of iterative reconstruction technique. COMPARISON: No relevant prior studies available. FINDINGS: Brain: No hemorrhage or mass effect. Ventricles: No hydrocephalus. Bones/joints: Unremarkable. Soft tissues: Unremarkable. Sinuses: Bilateral maxillary sinus air fluid level. Mastoid air cells: Clear. IMPRESSION: No acute hemorrhage, hydrocephalus, or mass effect. Bilateral maxillary sinus air fluid level.
[2023-12-19] MEDS ORDERED: ACETAMINOPHEN TAB 325 MG TAB PO PRN (04:28)
[2023-12-19] MEDS ORDERED: NALOXONE 0.4 MG/ML 1 ML VIAL IV PRN (04:28)
[2023-12-19] MEDS ORDERED: IBUPROFEN 400 MG TAB PO PRN (04:28)
--- NOTE | 2023-12-19 07:23 | CT ---
EXAMINATION TYPE: CT chest angio for PE DATE OF EXAM: 12/19/2023 COMPARISON: None HISTORY: SOB, stent placement on . hx of multiple stents placed from 2002- now. hypertension, hx of TIA approx. 5 years ago, [place] in 2018. CT DLP: 1529.5 mGycm Automated exposure control for dose reduction was used. CONTRAST: CT Chest for pulmonary embolism performed with with IV Contrast, patient injected with 70mL mL of Iso jaycee 370. 3-D postprocessing was performed. FINDINGS: There are mild emphysematous changes predominantly upper lobes. There is no suspicious lung mass, nodule, or normal airspace consolidation. There is minimal intersti tial density in the left lung base consistent with mild interstitial scarring or fibrosis. Great vessels chest are normal there is no mediastinal, hilar or axillary adenopathy. There are no filling defects within the pulmonary artery or branches to suggest pulmonary embolism. There is no pleural effusion or pneumothorax. The osseous structures are intact. Limited scanning through the upper abdomen reveals a 2 cm somewhat ill-defined hypodensity within the liver which statistically most likely represents an hemangioma. IMPRESSION: 1. Mild emphysematous changes. 2. No acute cardiomegaly disease. 3. No pulmonary embolism. 4 liver lesion statistically most likely representing hemangioma. Other etiologies not entirely exclu ded based on this study alone. Follow-up recommendations for incidental pulmonary nodules are per [employer] or [employer].
[2023-12-19] MEDS ORDERED: ASPIRIN 81 MG PO STA (07:26)
[2023-12-19] MEDS: ENOXAPARIN 40 MG/0.4 ML SYRINGE SQ SCH (11:12)
[2023-12-19] MEDS: FUROSEMIDE 20 MG TAB PO SCH (12:58)
[2023-12-19] MEDS: OSELTAMIVIR 75 MG CAP PO SCH ×2 (15:37→19:43)
--- NOTE | 2023-12-19 18:18 | P.CRDCN ---
History of Present Illness Consult date: 12/19/23 History of present illness: HISTORY OF PRESENTING ILLNESS 53-year-old male presented with chest pain. Patient recently had a nuclear stress test and a heart catheterization done at [facility] by Dr. Dick, patient reported that no intervention was done. He presented to the hospital because of substernal pressure-like sensation and increased shortness of breath with mild cough. On admission he was found positive for influenza and COVID. REVIEW OF SYSTEMS 14 point review of system is negative except what is mentioned above in HPI. PHYSICAL EXAMINATION Vital signs reviewed. Head: Normocephalic. Eyes: Sclerae nonicteric. Neck: Brisk carotid upstroke, no jugular venous distention. Lungs: Clear to auscultation. Heart: Regular rate and rhythm, S1-S2, no S3, no murmur or rub. Abdomen: Soft nontender, positive bowel sounds no organomegaly. Extremities: No edema, intact distal pulses. Neuro: Alert, oritented, no focal deficits ASSESSMENT Mild shortness of breath and chest pressure likely due to Covid and influenza Atypical chest pain, rule out of ACS Recent heart catheterization with Dr. Dick, negative for any intervention PLAN Patient is cleared to discharge from cardiac vessel standpoint. Patient needs outpatient follow-up with cardiology If patient decides to follow up with [facility], we will obtain records from Dr. Dick Past Medical History Past Medical History: Chest Pain / Angina, CVA/TIA, Hyperlipidemia, Hypertension, Myocardial Infarction ([place]) Additional Past Medical History / Comment(s): pt states he had TIA approx five years ago Last Myocardial Infarction Date:: 05/2018 History of Any Multi-Drug Resistant Organisms: None Reported Past Surgical History: Coronary Bypass/CABG, Heart Catheterization With Stent Additional Past Surgical History / Comment(s): triple bypass 2002?, heart caths with about 6 stents Past Anesthesia/Blood Transfusion Reactions: No Reported Reaction Date of Last Stent Placement:: 2010? Past Psychological History: No Psychological Hx Reported Smoking Status: Former smoker Past Alcohol Use History: None Reported Past Drug Use History: None Reported Medications and Allergies Home Medications Medication Instructions Recorded Confirmed Type Clopidogrel Bisulfate [Plavix] 75 mg PO PC-SUPPER 01/30/20 12/19/23 History Metoprolol Tartrate [Lopressor] 50 mg PO PC-SUPPER 01/30/20 12/19/23 History Multivitamins, Thera [Multivitamin 1 tab PO PC-SUPPER 08/22/22 12/19/23 History (formulary)] Isosorbide Mononitrate ER [Imdur] 30 mg PO PC-SUPPER 12/19/23 12/19/23 History Simvastatin [Zocor] 40 mg PO PC-SUPPER 12/19/23 12/19/23 History lisinopriL [Zestril] 10 mg PO PC-SUPPER 12/19/23 12/19/23 History Allergies Allergy/AdvReac Type Severity Reaction Status Date / Time Penicillins Allergy Rash/Hives Verified 12/19/23 11:46 Physical Exam Vitals: Vital Signs Temp Pulse Pulse Resp BP BP BP 12/19/23 17:57 87 107/80 12/19/23 14:20 98.0 F 80 15 120/75 12/19/23 13:00 65 111/68 111/68 12/19/23 08:39 68 16 106/60 12/19/23 08:00 97.4 F L 71 15 132/82 12/19/23 07:00 70 13 100/66 12/19/23 06:00 60 10 L 111/73 12/19/23 05:20 62 18 111/73 12/19/23 03:07 98.0 F 12/19/23 02:00 76 18 119/80 12/19/23 01:00 82 17 124/81 12/19/23 00:51 99.9 F H 80 19 127/78 Pulse Ox 12/19/23 17:57 12/19/23 14:20 98 12/19/23 13:00 12/19/23 08:39 98 12/19/23 08:00 100 12/19/23 07:00 99 12/19/23 06:00 99 12/19/23 05:20 95 12/19/23 03:07 12/19/23 02:00 100 12/19/23 01:00 100 12/19/23 00:51 100 Intake and Output 12/19/23 12/19/23 12/19/23 06:59 14:59 22:59 Other: # Voids 1 # Bowel Movements 1 Weight 87.543 kg 87.543 kg Results 12/19/23 01:20 12/19/23 01:20 Cardiac Enzymes 12/19/23 12/19/23 12/19/23 Range/Units 01:20 01:20 07:25 AST 76 H (17-59) U/L Troponin I <0.012 <0.012 (0.000-0.034) ng/mL 12/19/23 Range/Units 08:59 AST (17-59) U/L Troponin I <0.012 (0.000-0.034) ng/mL Coagulation 12/19/23 Range/Units 01:20 PT 10.7 (10.0-12.5) sec APTT 30.9 H (22.0-30.0) sec CBC 12/19/23 Range/Units 01:20 WBC 10.0 (3.8-10.6) k/uL RBC 4.34 (4.30-5.90) m/uL Hgb 13.6 (13.0-17.5) gm/dL Hct 39.7 (39.0-53.0) % Plt Count 325 (150-450) k/uL Comprehensive Metabolic Panel 12/19/23 Range/Units 01:20 Sodium 141 (137-145) mmol/L Potassium 4.0 (3.5-5.1) mmol/L Chloride 110 H (98-107) mmol/L Carbon Dioxide 20 L (22-30) mmol/L BUN 15 (9-20) mg/dL Creatinine 0.83 (0.66-1.25) mg/dL Glucose 103 H (74-99) mg/dL Calcium 9.1 (8.4-10.2) mg/dL AST 76 H (17-59) U/L ALT 99 H (4-49) U/L Alkaline Phosphatase 74 (38-126) U/L Total Protein 7.6 (6.3-8.2) g/dL Albumin 4.2 (3.5-5.0) g/dL Current Medications Generic Name Dose Route Start Last Admin Trade Name Freq PRN Reason Stop Dose Admin Acetaminophen 650 mg 12/19/23 04:28 Acetaminophen Tab 325 Mg Tab PO Q6HR PRN Mild Pain or Fever > 100.5 Atorvastatin Calcium 20 mg 12/19/23 18:30 12/19/23 17:53 Atorvastatin 20 Mg Tab PO 20 mg PC-SUPPER FRANK Administration Clopidogrel Bisulfate 75 mg 12/19/23 18:30 12/19/23 17:53 Clopidogrel 75 Mg Tab PO 75 mg PC-SUPPER FRANK Administration Enoxaparin Sodium 40 mg 12/19/23 10:45 12/19/23 11:12 Enoxaparin 40 Mg/0.4 Ml Syringe SQ 40 mg DAILY FRANK Administration Furosemide 20 mg 12/19/23 11:30 12/19/23 12:58 Furosemide 20 Mg Tab PO 20 mg DAILY FRANK Administration Lisinopril 10 mg 12/19/23 18:30 12/19/23 17:54 Lisinopril 10 Mg Tab PO 10 mg PC-SUPPER FRANK Administration Metoprolol Tartrate 50 mg 12/19/23 18:30 12/19/23 17:54 Metoprolol Tartrate 50 Mg Tab PO 50 mg PC-SUPPER FRANK Administration Multivitamins 1 each 12/19/23 18:30 12/19/23 17:53 Multivitamins, Thera 1 Each Tab PO 1 each PC-SUPPER FRANK Administration Naloxone HCl 0.2 mg 12/19/23 04:28 Naloxone 0.4 Mg/Ml 1 Ml Vial IV Q2M PRN Opioid Reversal Oseltamivir Phosphate 75 mg 12/19/23 15:00 12/19/23 15:37 Oseltamivir 75 Mg Cap PO 12/23/23 21:01 75 mg Q12HR FRANK Administration Protocol Intake and Output 12/19/23 12/19/23 12/19/23 06:59 14:59 22:59 Other: # Voids 1 # Bowel Movements 1 Weight 87.543 kg 87.543 kg Patient Weight 12/20/23 06:59 Weight 87.543 kg 12/19/23 01:20 12/19/23 01:20
[2023-12-19] MEDS ORDERED: ATORVASTATIN 20 MG TAB PO SCH (18:30)
[2023-12-19] MEDS ORDERED: METOPROLOL TARTRATE 50 MG TAB PO SCH (18:30)
[2023-12-19] MEDS ORDERED: lisinopriL 10 MG TAB PO SCH (18:30)
[2023-12-19] MEDS ORDERED: CLOPIDOGREL 75 MG TAB PO SCH (18:30)
[2023-12-19] MEDS ORDERED: MULTIVITAMINS, THERA 1 EACH TAB PO SCH (18:30)
--- NOTE | 2023-12-19 19:32 | P.HPIM ---
History of Present Illness H&P Date: 12/19/23 Chief Complaint: Increased perspiration This is a pleasant 53-year-old patient is family doctor is out of the area. I'm rounding for Dr. Cuba Gramajo. Patient 2 days ago underwent a cardiac catheterization that is on because of stress test changes. By his community action worker Dr. Barksdale. As for the findings there was no new change. Later when he went home patient started having perspiration. Also prickly sensation in the chest. 2 days ago patient's had a cough. Has been feeling tired. Decided to come in. Also dizziness and lightheaded. Troponins are negative. Patient came back tested positive for influenza a and COVID-19. No other family member has the symptoms. Because of some chest pain cardiology was consulted. Review of systems: GEN.: Tired significant perspiration EYES: None HEENT: None NECK: None RESPIRATORY: Had a cough CARDIOVASCULAR: As above GASTROINTESTINAL: None GENITOURINARY: None MUSCULOSKELETAL: None LYMPHATICS: None HEMATOLOGICAL: None PSYCHIATRY: None NEUROLOGICAL: None Social history: Patient smoked a pack and a day for about 40 years. 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 Lives with his . Physical examination: VITAL SIGNS: 97.4, 71, 15, 1 32 x 82, 100% room air GENERAL: BMI 28.5, declining but awake a bit tired. EYES: Pupils equal. Conjunctiva normal. HEENT: External appearance of nose and ears normal, oral cavity grossly normal. NECK: JVD not raised; masses not palpable. HEART: First and second heart sounds are normal; no edema. LUNGS: Respiratory rate normal; clear to auscultation. ABDOMEN: Soft, nontender, liver spleen not palpable, no masses palpable. PSYCH: Alert and oriented x3; mood and affect normal. MUSCULOSKELETAL:No Clubbing/cyanosis;muscles-grossly intact NEUROLOGICAL: Cranial nerves grossly intact; no facial asymmetry, power and sensation grossly intact. LYMPHATICS: No lymph nodes palpable in the axilla and neck INVESTIGATIONS, reviewed in the clinical context: 12/19/2023: White count and hemoglobin 13.6 platelets 325 sodium 141 potassium 4 creatinine 0.83 Troponin I 3 less than 0.012 Influenza type A detected. COVID-19 PCR: Detected EKG tracing personally reviewed by me-normal sinus rhythm. Nonspecific ST/ST segment changes. Chest x-ray film personally reviewed by me-some scant infiltrate Chest CTA: Some lymphocytic minutes changes. Negative PE. Assessment and plan: -Anterior chest wall pain likely from pleurisy secondary to influenza A -Acute influenza a pneumonitis. Tamiflu 75 mg twice a day -Acute COVID 19 infection. No hypoxia. Follow clinically -CAD with prior history of stent. Follows with Dr. Dick cardiology. Zestril. Plavix. Lopressor. Imdur. Zocor. -Essential hypertension Lopressor. Zestril -Hyperlipidemia Zocor Care was discussed with the patient and the at the bedside. Cardio ALLERGY was consulted. Activity as tolerated. Past Medical History Past Medical History: Chest Pain / Angina, CVA/TIA, Hyperlipidemia, Hypertension, Myocardial Infarction ([place]) Additional Past Medical History / Comment(s): pt states he had TIA approx five years ago Last Myocardial Infarction Date:: 05/2018 History of Any Multi-Drug Resistant Organisms: None Reported Past Surgical History: Coronary Bypass/CABG, Heart Catheterization With Stent Additional Past Surgical History / Comment(s): triple bypass 2002?, heart caths with about 6 stents Past Anesthesia/Blood Transfusion Reactions: No Reported Reaction Date of Last Stent Placement:: 2010? Past Psychological History: No Psychological Hx Reported Smoking Status: Former smoker Past Alcohol Use History: None Reported Past Drug Use History: None Reported Medications and Allergies Home Medications Medication Instructions Recorded Confirmed Type Clopidogrel Bisulfate [Plavix] 75 mg PO PC-SUPPER 01/30/20 12/19/23 History Metoprolol Tartrate [Lopressor] 50 mg PO PC-SUPPER 01/30/20 12/19/23 History Multivitamins, Thera [Multivitamin 1 tab PO PC-SUPPER 08/22/22 12/19/23 History (formulary)] Isosorbide Mononitrate ER [Imdur] 30 mg PO PC-SUPPER 12/19/23 12/19/23 History Simvastatin [Zocor] 40 mg PO PC-SUPPER 12/19/23 12/19/23 History lisinopriL [Zestril] 10 mg PO PC-SUPPER 12/19/23 12/19/23 History Allergies Allergy/AdvReac Type Severity Reaction Status Date / Time Penicillins Allergy Rash/Hives Verified 12/19/23 11:46 Physical Exam Vitals: Vital Signs Temp Pulse Pulse Resp BP BP Pulse Ox 12/19/23 08:39 68 16 106/60 98 12/19/23 08:00 97.4 F L 71 15 132/82 100 12/19/23 07:00 70 13 100/66 99 12/19/23 06:00 60 10 L 111/73 99 12/19/23 05:20 62 18 111/73 95 12/19/23 03:07 98.0 F 12/19/23 02:00 76 18 119/80 100 12/19/23 01:00 82 17 124/81 100 12/19/23 00:51 99.9 F H 80 19 127/78 100 Intake and Output 12/18/23 12/19/23 12/19/23 22:59 06:59 14:59 Other: Weight 87.543 kg Results CBC & Chem 7: 12/19/23 01:20 12/19/23 01:20 Labs: Abnormal Lab Results - Last 24 Hours (Table) 12/19/23 12/19/23 12/19/23 Range/Units 01:20 01:20 01:20 APTT 30.9 H (22.0-30.0) sec D-Dimer 0.67 H (<0.60) mg/L FEU Chloride 110 H (98-107) mmol/L Carbon Dioxide 20 L (22-30) mmol/L Glucose 103 H (74-99) mg/dL AST 76 H (17-59) U/L ALT 99 H (4-49) U/L Influenza Type A (PCR) Detected A (Not Detectd) SARS-CoV-2 (PCR) Detected A (Not Detectd) Thrombosis Risk Factor Assmnt - Choose All That Apply Each Factor Represents 1 point: Age 41-60 years Other Risk Factors: No Thrombosis Risk Factor Assessment Total Risk Factor Score: 1 Thrombosis Risk Factor Assessment Level: Low Risk
[2023-12-20 03:59] VITALS: PULSE 83
[2023-12-20 07:37] VITALS: BP 114/73; RESP 15; TEMP 98
[2023-12-20] MEDS: ENOXAPARIN 40 MG/0.4 ML SYRINGE SQ SCH (08:30)
[2023-12-20] MEDS: FUROSEMIDE 20 MG TAB PO SCH (08:31)
[2023-12-20] MEDS: OSELTAMIVIR 75 MG CAP PO SCH (08:31)
--- NOTE | 2023-12-21 18:10 | P.DS ---
Providers Date of admission: 12/19/23 07:26 Expected date of discharge: 12/20/23 Attending physician: Cuba Gramajo Consults: 12/19/23 10:35 Consult Physician Routine Consulting Provider: Sarwat Sagastume Consult Reason/Comments: chest pain Do you want consulting provider notified?: Yes Primary care physician: Stated None Hospital Course: Chief Complaint: Increased perspiration This is a pleasant 53-year-old patient is family doctor is out of the area. I'm rounding for Dr. Cuba Gramajo. Patient 2 days ago underwent a cardiac catheterization that is on because of stress test changes. By his net architect Dr. Barksdale. As for the findings there was no new change. Later when he went home patient started having perspiration. Also prickly sensation in the chest. 2 days ago patient's had a cough. Has been feeling tired. Decided to come in. Also dizziness and lightheaded. Troponins are negative. Patient came back tested positive for influenza a and COVID-19. No other family member has the symptoms. Because of some chest pain cardiology was consulted. 12/20/2023: Doing much better. Up and about. Discussed with patient and . Keen to go home. Breathing stable. Symptomatically treatment discussed. Patient follow-up with his net architect. Complete a course of Tamiflu. Social history: Patient smoked a pack and a day for about 40 years. 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 Physical examination: VITAL SIGNS: 98, 83, 15, 114.73, 98% room air GENERAL: Sitting up in a chair, comfortable EYES: Pupils equal. Conjunctiva normal. HEENT: External appearance of nose and ears normal, oral cavity grossly normal. NECK: JVD not raised; masses not palpable. HEART: First and second heart sounds are normal; no edema. LUNGS: Respiratory rate normal; clear to auscultation. ABDOMEN: Soft, nontender, liver spleen not palpable, no masses palpable. PSYCH: Alert and oriented x3; mood and affect normal. MUSCULOSKELETAL:No Clubbing/cyanosis;muscles-grossly intact INVESTIGATIONS, reviewed in the clinical context: 12/19/2023: White count and hemoglobin 13.6 platelets 325 sodium 141 potassium 4 creatinine 0.83 Troponin I 3 less than 0.012 Influenza type A detected. COVID-19 PCR: Detected EKG tracing personally reviewed by me-normal sinus rhythm. Nonspecific ST/ST segment changes. Chest x-ray film personally reviewed by me-some scant infiltrate Chest CTA: Some lymphocytic minutes changes. Negative PE. Assessment and plan: -Anterior chest wall pain likely from pleurisy secondary to influenza A -Acute influenza a pneumonitis. Tamiflu 75 mg twice a day-complete course -Acute COVID 19 infection. No hypoxia. Able -CAD with prior history of stent. Follows with Dr. Partida cardiology. Zestril. Plavix. Lopressor. Imdur. Zocor. -Essential hypertension Lopressor. Zestril -Hyperlipidemia Zocor Disposition: Home Past Medical History Past Medical History: Chest Pain / Angina, CVA/TIA, Hyperlipidemia, Hypertension, Myocardial Infarction ([place]) Additional Past Medical History / Comment(s): pt states he had TIA approx five years ago Last Myocardial Infarction Date:: 05/2018 History of Any Multi-Drug Resistant Organisms: None Reported Past Surgical History: Coronary Bypass/CABG, Heart Catheterization With Stent Additional Past Surgical History / Comment(s): triple bypass 2002?, heart caths with about 6 stents Past Anesthesia/Blood Transfusion Reactions: No Reported Reaction Date of Last Stent Placement:: 2010? Past Psychological History: No Psychological Hx Reported Smoking Status: Former smoker Past Alcohol Use History: None Reported Past Drug Use History: None Reported Plan - Discharge Summary Discharge Rx Participant: No New Discharge Prescriptions: New Furosemide [Lasix] 20 mg PO DAILY #30 tab Oseltamivir [Tamiflu] 75 mg PO Q12HR #10 cap Continue Metoprolol Tartrate [Lopressor] 50 mg PO PC-SUPPER Clopidogrel Bisulfate [Plavix] 75 mg PO PC-SUPPER Simvastatin [Zocor] 40 mg PO PC-SUPPER Multivitamins, Thera [Multivitamin (formulary)] 1 tab PO PC-SUPPER lisinopriL [Zestril] 10 mg PO PC-SUPPER Isosorbide Mononitrate ER [Imdur] 30 mg PO PC-SUPPER Discharge Medication List Clopidogrel Bisulfate [Plavix] 75 mg PO PC-SUPPER 01/30/20 [History] Metoprolol Tartrate [Lopressor] 50 mg PO PC-SUPPER 01/30/20 [History] Multivitamins, Thera [Multivitamin (formulary)] 1 tab PO PC-SUPPER 08/22/22 [History] Isosorbide Mononitrate ER [Imdur] 30 mg PO PC-SUPPER 12/19/23 [History] Simvastatin [Zocor] 40 mg PO PC-SUPPER 12/19/23 [History] lisinopriL [Zestril] 10 mg PO PC-SUPPER 12/19/23 [History] Furosemide [Lasix] 20 mg PO DAILY #30 tab 12/20/23 [Rx] Oseltamivir [Tamiflu] 75 mg PO Q12HR #10 cap 12/20/23 [Rx] Follow up Appointment(s)/Referral(s): diane partida [Other] - 1-[address] edith [Other] - 1 Week Patient Instructions/Handouts: Chest Pain (DC) Discharge Disposition: HOME SELF-CARE
== END 2023-12-20 12:08 | disposition home or self-care (01) ==
LOC: EC 00:49 → 6NMEDSUR 07:26
PROVIDERS: ADMIT Family Medicine; ATTEND Family Medicine
DX: R07.89 Other chest pain (principal); R42 Dizziness and giddiness; J98.4 Other disorders of lung; J10.1 Influenza due to other identified influenza virus with other respiratory manifestations; U07.1 COVID-19; I25.10 Atherosclerotic heart disease of native coronary artery without angina pectoris; I10 Essential (primary) hypertension; E78.5 Hyperlipidemia, unspecified; I25.2 Old myocardial infarction; Z86.73 Personal history of transient ischemic attack (TIA), and cerebral infarction without residual deficits; Z87.891 Personal history of nicotine dependence; Z95.1 Presence of aortocoronary bypass graft; Z95.5 Presence of coronary angioplasty implant and graft; Z79.899 Other long term (current) drug therapy; Z79.02 Long term (current) use of antithrombotics/antiplatelets; Z88.0 Allergy status to penicillin
CPT/HCPCS: 96372 ×2; 96374; 99285; 36415; 93005; 85379; 80053; 83605; 83735; 84484; 85025; 85610; 85730; 87636; 71046; 70450; 71275; G0378 ×2; J2405; J1650 ×2; Q9967; 96361

== ENCOUNTER 2025-01-27 14:45 | Observation (INO) | payer MEDICARE ==
--- NOTE | 2025-01-27 15:15 | CT ---
EXAMINATION TYPE: CODE STROKE: CT brain wo contr CT DLP: 1158.6 mGycm, Automated exposure control for dose reduction was used. DATE OF EXAM: 01/27/2025 3:10 PM COMPARISON: CT brain 04/12/2021 CLINICAL INDICATION:Male, 54 years old with history of Neuro deficit, acute, stroke suspected, left s sepideh facial numbness with arm numbness. symptoms started approx 1 hour ago. minimal slurred speech not ed with no obvious facial droop. no injury noted. TECHNIQUE: Brain: Multiple axial CT images of the brain were obtained without IV contrast. . Coronal and sagitta l reformats reviewed. FINDINGS: Brain: Extra-axial spaces: No abnormal extra-axial fluid collections. Ventricular system: Within normal limits Cerebral parenchyma: No acute intraparenchymal hemorrhage or mass effect. The morales-white junction is well differentiated. Cerebellum: Unremarkable. Mass effect: No evidence of midline shift. Intracranial vasculature: unremarkable Soft tissues: Normal. Calvarium/osseous structures: No depressed skull fracture. Paranasal sinuses and mastoid air cells: Mild scattered paranasal sinus disease. Visualized orbits: Orbital contents are intact. IMPRESSION: No acute intracranial process. Findings called to and discussed with Dr. Pa Carlin at 3:13 PM on 01/27/2025. [facility], , 01/27/2025 3:13 PM
[2025-01-27 15:18] LABS: Basophils # (A) 0.1 k/uL (0-0.2); Basophils % (A) 1 %; Eosinophils # (A) 0.5 k/uL (0-0.7); Eosinophils % (A) 4 %; HCT 46.5 % (39.0-53.0); HGB 14.8 gm/dL (13.0-17.5); Lymphocytes # (A) 4.4 k/uL (1.0-4.8); Lymphocytes % (A) 41 %; MCH 29.7 pg (25.0-35.0); MCHC 31.8 g/dL (31.0-37.0); MCV 93.3 fL (80.0-100.0); Mean Platelet Volume 8.1; Monocytes # (A) 0.7 k/uL (0-1.0); Monocytes % (A) 6 %; Neutrophils # (A) 4.8 k/uL (1.3-7.7); Neutrophils % (A) 45 %; Platelet Count 264 k/uL (150-450); RBC 4.99 m/uL (4.30-5.90); RDW 12.8 % (11.5-15.5); WBC 10.7 k/uL (3.8-10.6)
[2025-01-27] MEDS: ASPIRIN 325 MG TAB PO STA (15:26)
[2025-01-27 15:31] LABS: ALT 28 U/L (4-49); AST 25 U/L (17-59); African American GFR (CKD) 88 (>60 ml/min/1.73 sqM); Albumin 4.7 g/dL (3.5-5.0); Alkaline Phosphatase 71 U/L (38-126); Anion Gap 9 mmol/L; Blood Urea Nitrogen 17 mg/dL (9-20); Calcium 9.8 mg/dL (8.4-10.2); Carbon Dioxide 22 mmol/L (22-30); Chloride 106 mmol/L (98-107); Creatine Kinase 96 U/L (55-170); Glucose 144 mg/dL (74-99); Non-African American GFR(CKD) 76 (>60 ml/min/1.73 sqM); Partial Thromboplastin Time 28.6 sec (22.0-30.0); Prothrombin Time 10.8 sec (10.0-12.5); Sodium 137 mmol/L (137-145); Total Bilirubin 0.5 mg/dL (0.2-1.3); Total Protein 7.7 g/dL (6.3-8.2)
--- NOTE | 2025-01-27 15:36 | CT ---
EXAMINATION TYPE: CT angio head neck CT DLP: 613.3 mGycm, Automated exposure control for dose reduction was used. DATE OF EXAM: 01/27/2025 3:26 PM COMPARISON: CT brain 01/27/2025, CTA head and Neck 04/12/2021. CLINICAL INDICATION:Male, 54 years old with history of Neuro deficit, acute, stroke suspected; PHH, l eft side facial numbness with arm numbness. symptoms started approx 1 hour ago. minimal slurred speec h noted with no obvious facial droop. no injury noted. TECHNIQUE: Axially acquired helical CT angiogram of the head and neck was obtained with contrast util izing 75 cc of Isovue-370 administered intravenously. Axial images are supplemented with 3D reconstru ctions which were post-processed at an independent workstation. NASCET criteria used. FINDINGS: CTA HEAD: No evidence of acute intracranial hemorrhage, mass effect, or midline shift. The ventricles, sulci, a nd cisterns are unremarkable. The visualized portions of the internal carotid arteries, middle cerebral arteries, anterior cerebral arteries, and posterior cerebral arteries are patent. The basilar and vertebral arteries are patent. CTA NECK: Right Carotid System: The common carotid artery and external carotid artery are patent. The carotid bifurcation demonstrate s no evidence of hemodynamically significant stenosis. The remaining portions of the internal carotid artery demonstrate normal size without significant narrowing. Left Carotid System: The common carotid artery and external carotid artery are patent. The carotid bifurcation demonstrate s no evidence of hemodynamically significant stenosis. The remaining portions of the internal carotid artery demonstrate normal size without significant narrowing. Vertebral arteries are patent without evidence hemodynamically significant stenosis. There is a three-vessel aortic arch. The origins of the great vessels are patent. No evidence of hemo dynamically significant stenosis. Centrilobular emphysematous changes with minimal biapical pleural parenchymal scarring. Median sterno kayleigh wires. Paranasal sinus mucosal thickening. Bilateral palatine tonsilloliths. Subcentimeter bilat eral thyroid hypodense nodules. IMPRESSION: 1. No evidence of dissection of the cervical internal carotid arteries or vertebral arteries or any e vidence of significant stenosis at the carotid bifurcations. 2. No evidence of high-grade stenosis or intracranial aneurysm. [facility], , 01/27/2025 3:33 PM
--- NOTE | 2025-01-27 16:13 | XR ---
EXAMINATION TYPE: XR chest 2V DATE OF EXAM: 01/27/2025 4:06 PM COMPARISON: 12/19/2023 CLINICAL INDICATION: Male, 54 years old with history of altered mental status, TECHNIQUE: XR chest 2V view(s) obtained. FINDINGS: The heart size is normal. The pulmonary vasculature is normal. Lingular infiltrate is silhouetting the left heart border. Correlate for atelectasis or pneumonia. No additional infiltrates are evident. IMPRESSION: 1. Lingular infiltrate. Correlate for atelectasis or pneumonia. [facility], , 01/27/2025 4:11 PM
--- NOTE | 2025-01-27 17:07 | ED ---
General Adult HPI - General Chief complaint: Neuro Symptoms/Deficit Stated complaint: Facial Numbess Time Seen by Provider: 01/27/25 14:52 Source: patient, RN notes reviewed, old records reviewed Mode of arrival: ambulatory Limitations: no limitations - History of Present Illness Initial comments: 54-year-old male history of CAD status post bypass and TIA presenting for evaluation of left arm numbness and left facial numbness. Patient states the symptoms began 1 hour prior to arrival. No focal weakness, no speech abnormality. No headache. No chest pain. - Related Data Home Medications Medication Instructions Recorded Confirmed Clopidogrel Bisulfate [Plavix] 75 mg PO DAILY 01/30/20 01/27/25 Metoprolol Tartrate [Lopressor] 50 mg PO DAILY 01/30/20 01/27/25 Isosorbide Mononitrate ER [Imdur] 30 mg PO DAILY 12/19/23 01/27/25 Simvastatin [Zocor] 40 mg PO DAILY 12/19/23 01/27/25 lisinopriL [Zestril] 20 mg PO DAILY 01/27/25 01/27/25 Allergies Allergy/AdvReac Type Severity Reaction Status Date / Time Penicillins Allergy Rash/Hives Verified 01/27/25 14:51 Review of Systems ROS Statement: Those systems with pertinent positive or pertinent negative responses have been documented in the HPI. ROS Other: All systems not noted in ROS Statement are negative. Past Medical History Past Medical History: Chest Pain / Angina, CVA/TIA, Hyperlipidemia, Hypertension , Myocardial Infarction ([place]) Additional Past Medical History / Comment(s): pt states he had TIA approx five years ago Last Myocardial Infarction Date:: 05/2018 History of Any Multi-Drug Resistant Organisms: None Reported Past Surgical History: Coronary Bypass/CABG, Heart Catheterization With Stent Additional Past Surgical History / Comment(s): triple bypass 2002?, heart caths with about 6 stents Past Anesthesia/Blood Transfusion Reactions: No Reported Reaction Date of Last Stent Placement:: 2010? Past Psychological History: No Psychological Hx Reported Smoking Status: Former smoker Past Alcohol Use History: None Reported Past Drug Use History: None Reported General Exam Limitations: no limitations General appearance: alert, in no apparent distress Head exam: Present: atraumatic, normocephalic Eye exam: Present: normal appearance, PERRL ENT exam: Present: normal exam Neck exam: Present: normal inspection. Absent: tenderness Respiratory exam: Present: normal lung sounds bilaterally. Absent: respiratory distress Cardiovascular Exam: Present: regular rate, normal rhythm GI/Abdominal exam: Present: soft. Absent: distended, tenderness, guarding Extremities exam: Present: normal inspection, normal capillary refill Neurological exam: Present: alert, oriented X3, CN II-XII intact, motor sensory deficit (Left facial numbness, left arm numbness, NIH of 2) Psychiatric exam: Present: normal affect, normal mood Skin exam: Present: warm, dry. Absent: cyanosis, diaphoretic Course Vital Signs 01/27/25 01/27/25 01/27/25 14:48 15:14 15:26 Temperature 97.3 F L 98 F 98.2 F Pulse Rate 106 H 85 80 Respiratory 18 18 18 Rate Blood Pressure 165/92 152/95 157/97 O2 Sat by Pulse 100 97 96 Oximetry 01/27/25 01/27/25 01/27/25 15:41 15:45 16:00 Temperature 98.1 F Pulse Rate 83 79 80 Respiratory 18 18 18 Rate Blood Pressure 157/97 153/87 O2 Sat by Pulse 971 H 95 96 Oximetry 01/27/25 01/27/25 01/27/25 16:15 16:30 16:45 Temperature Pulse Rate 82 80 78 Respiratory 18 20 16 Rate Blood Pressure 141/101 141/86 153/100 O2 Sat by Pulse 96 97 97 Oximetry 01/27/25 01/27/25 01/27/25 17:00 17:15 17:30 Temperature Pulse Rate 76 77 78 Respiratory 18 20 18 Rate Blood Pressure 169/107 175/130 138/85 O2 Sat by Pulse 97 96 96 Oximetry 01/27/25 01/27/25 01/27/25 17:45 18:00 18:15 Temperature Pulse Rate 83 74 75 Respiratory 18 18 20 Rate Blood Pressure 150/89 153/93 155/98 O2 Sat by Pulse 96 97 Oximetry 01/27/25 01/27/25 01/27/25 18:30 18:45 19:45 Temperature Pulse Rate 71 80 78 Respiratory 20 18 Rate Blood Pressure 158/96 133/75 152/99 O2 Sat by Pulse 96 96 97 Oximetry 01/27/25 01/27/25 01/27/25 20:00 20:15 20:30 Temperature Pulse Rate 73 86 71 Respiratory Rate Blood Pressure 157/93 149/94 145/93 O2 Sat by Pulse 97 97 96 Oximetry Medical Decision Making - Medical Decision Making Was pt. sent in by a medical professional or institution ([facility], CONCRETER, urgent care, hospital, or longterm...) When possible be specific @ -No Did you speak to anyone other than the patient for history (EMS, parent, family, police, friend...)? What history was obtained from this source @ -No Did you review nursing and triage notes (agree or disagree)? Why? @ -I reviewed and agree with nursing and triage notes Were old charts reviewed (outside hosp., previous admission, EMS record, old EKG, old radiological studies, urgent care reports/EKG's, longterm records)? Report findings @ -No old charts were reviewed Differential CVA Ischemic stroke, hemorrhagic stroke, brain tumor, atypical migraine, Wernicke's encephalopathy, seizure, multiple sclerosis, meningitis, encephalitis, hypoglycemia, Guillain-Vital, electrolytes disturbance, myasthenia gravis.... This is not meant to be an all-inclusive list EKG interpreted by me (3pts min.). @ -Sinus rhythm rate of 86, NJ interval 166, QRS duration 99, QTc [address] segment elevation. X-rays interpreted by me (1pt min.). @ -[Chest x-ray concerning for atelectasis versus infiltrate, doubt pneumonia at this time, no fever, no cough, no leukocytosis. CT interpreted by me (1pt min.). @ -CT brain negative for intracranial hemorrhage or mass effect, CT angiography negative for acute occlusion or stenosis. U/S interpreted by me (1pt. min.). @ -None done What testing was considered but not performed or refused? (CT, X-rays, U/S, labs)? Why? @ -None What meds were considered but not given or refused? Why? @ -None Did you discuss the management of the patient with other professionals (professionals i.e. [facility], CONCRETER, lab, RT, psych nurse, social work therapist, wire fence builder, teacher, sanitation officer, case folder)? Give summary @ -This was an activated thrombolytics patient and care was discussed with Dr. Maharaj at the onset not a thrombolytic candidate secondary to low NIH. [facility] Was smoking cessation discussed for >3mins.? @ -No Was critical care preformed (if so, how long)? @Yes, 35 minutes Were there social determinants of health that impacted care today? How? (Homelessness, low income, unemployed, alcoholism, drug addiction, transportation, low edu. Level, literacy, decrease access to med. care, shelter, rehab)? @ -No Was there de-escalation of care discussed even if they declined (Discuss DNR or withdrawal of care, Hospice)? DNR status @ -No What co-morbidities impacted this encounter? (DM, HTN, Smoking, COPD, CAD, Cancer, CVA, ARF, Chemo, Hep., AIDS, mental health diagnosis, sleep apnea, morbid obesity)? @ -Hypertension, CAD, previous TIA Was patient admitted / discharged? Hospital course, mention meds given and route, prescriptions, significant lab abnormalities, going to OR and other pertinent info. @ 54-year-old thing with left facial numbness, left arm numbness. There is no weakness or ataxia, initial NIH is 2. CT brain negative for intracranial hemorrhage or mass effect, CT angiography negative for acute occlusion or stenosis. Patient given aspirin in the emergency department. He will be admitted for further stroke evaluation. Undiagnosed new problem with uncertain prognosis? @ -No Drug Therapy requiring intensive monitoring for toxicity (Heparin, Nitro, Insulin, Cardizem)? @ -No Were any procedures done? @ -No Diagnosis/symptom? @CVA Acute, or Chronic, or Acute on Chronic? @ -[Acute Uncomplicated (without systemic symptoms) or Complicated (systemic symptoms)? @Complicated Side effects of treatment? @ -No Exacerbation, Progression, or Severe Exacerbation? @ -No Poses a threat to life or bodily function? How? (Chest pain, [place], [place], pneumonia, PE, COPD, DKA, ARF, appy, cholecystitis, CVA, Diverticulitis, Homicidal, Suicidal, threat to staff... and all critical care pts) @ -Yes, CVA - Lab Data Result diagrams: 01/27/25 15:13 01/27/25 15:13 Lab Results 01/27/25 01/27/25 01/27/25 Range/Units 15:13 15:13 15:13 WBC 10.7 H (3.8-10.6) k/uL RBC 4.99 (4.30-5.90) m/uL Hgb 14.8 (13.0-17.5) gm/dL Hct 46.5 (39.0-53.0) % MCV 93.3 (80.0-100.0) fL MCH 29.7 (25.0-35.0) pg MCHC 31.8 (31.0-37.0) g/dL RDW 12.8 (11.5-15.5) % Plt Count 264 (150-450) k/uL MPV 8.1 Neutrophils % 45 % Lymphocytes % 41 % Monocytes % 6 % Eosinophils % 4 % Basophils % 1 % Neutrophils # 4.8 (1.3-7.7) k/uL Lymphocytes # 4.4 (1.0-4.8) k/uL Monocytes # 0.7 (0-1.0) k/uL Eosinophils # 0.5 (0-0.7) k/uL Basophils # 0.1 (0-0.2) k/uL PT 10.8 (10.0-12.5) sec INR 1.0 (<1.2) APTT 28.6 (22.0-30.0) sec Sodium 137 (137-145) mmol/L Potassium 4.0 (3.5-5.1) mmol/L Chloride 106 (98-107) mmol/L Carbon Dioxide 22 (22-30) mmol/L Anion Gap 9 mmol/L BUN 17 (9-20) mg/dL Creatinine 1.08 (0.66-1.25) mg/dL Est GFR (CKD-EPI)AfAm 88 (>60 ml/min/1.73 sqM) Est GFR (CKD-EPI)NonAf 76 (>60 ml/min/1.73 sqM) Glucose 144 H (74-99) mg/dL Calcium 9.8 (8.4-10.2) mg/dL Total Bilirubin 0.5 (0.2-1.3) mg/dL AST 25 (17-59) U/L ALT 28 (4-49) U/L Alkaline Phosphatase 71 (38-126) U/L Creatine Kinase 96 (55-170) U/L Troponin I (0.000-0.034) ng/mL Total Protein 7.7 (6.3-8.2) g/dL Albumin 4.7 (3.5-5.0) g/dL 01/27/25 Range/Units 15:13 WBC (3.8-10.6) k/uL RBC (4.30-5.90) m/uL Hgb (13.0-17.5) gm/dL Hct (39.0-53.0) % MCV (80.0-100.0) fL MCH (25.0-35.0) pg MCHC (31.0-37.0) g/dL RDW (11.5-15.5) % Plt Count (150-450) k/uL MPV Neutrophils % % Lymphocytes % % Monocytes % % Eosinophils % % Basophils % % Neutrophils # (1.3-7.7) k/uL Lymphocytes # (1.0-4.8) k/uL Monocytes # (0-1.0) k/uL Eosinophils # (0-0.7) k/uL Basophils # (0-0.2) k/uL PT (10.0-12.5) sec INR (<1.2) APTT (22.0-30.0) sec Sodium (137-145) mmol/L Potassium (3.5-5.1) mmol/L Chloride (98-107) mmol/L Carbon Dioxide (22-30) mmol/L Anion Gap mmol/L BUN (9-20) mg/dL Creatinine (0.66-1.25) mg/dL Est GFR (CKD-EPI)AfAm (>60 ml/min/1.73 sqM) Est GFR (CKD-EPI)NonAf (>60 ml/min/1.73 sqM) Glucose (74-99) mg/dL Calcium (8.4-10.2) mg/dL Total Bilirubin (0.2-1.3) mg/dL AST (17-59) U/L ALT (4-49) U/L Alkaline Phosphatase (38-126) U/L Creatine Kinase (55-170) U/L Troponin I <0.012 (0.000-0.034) ng/mL Total Protein (6.3-8.2) g/dL Albumin (3.5-5.0) g/dL Disposition Clinical Impression: Cerebrovascular accident (CVA) Disposition: ADMITTED IP TO THIS HOSP Condition: Stable Is patient prescribed a controlled substance at d/c from ED?: No Time of Disposition: :07
[2025-01-28 04:20] VITALS: RESP 18
[2025-01-28 08:16] VITALS: PULSE 74
[2025-01-28] MEDS: CLOPIDOGREL 75 MG TAB PO SCH (09:08)
[2025-01-28] MEDS: ATORVASTATIN 40 MG TAB PO SCH (09:08)
[2025-01-28] MEDS: ASPIRIN 325 MG TAB PO SCH (09:08)
--- NOTE | 2025-01-28 13:14 | P.CNNES ---
History of Present Illness Consult date: 01/28/25 Requesting physician: Pa Carlin Reason for Consult: CVA History of Present Illness: Patient is a 54-year-old right-handed male with history of hypertension, previous TIA, came to the hospital yesterday at 2:25 PM with another episode of possible TIA. Patient states that his blood pressure has been recently running high. He saw his retail area manager, who increase his dose of lisinopril from 5 up to 20 mg a day. Yesterday morning he took his first dose of higher dose of lisinopril 20 mg. Shortly after he noticed some tingling in the fingertips of the left hand, then the left hand and some tingling in the left side of the face. He got concerned and decided to come to the ER. There was no associated slurred speech, facial droop, any focal weakness, headache. Patient states his symptoms resolved in about 3 to 4 hours. At present he has no symptoms. He wants to go home. Vital signs on arrival blood pressure 165/92, pulse rate 106 temperature 97.3. Blood test shows normal CBC with elevated WBC count of 10.7. PT PTT normal, CMP normal. Troponin negative. CK normal. CT head showed no acute intracranial process. Chest x-ray showed lingular infiltrate. Correlate for atelectasis or pneumonia. EKG showed sinus rhythm. Patient has been seen by Dr. Stephens on 04/13/2021 for TIA with symptoms of transient left-sided weakness upper and lower extremity, left eye blurred vision, left cheek numbness lasting for 45 minutes. He had similar TIA 5 years prior as well. CTA of the head and neck was normal. He was maintained on aspirin and Plavix. Home medications include Plavix 75 mg, simvastatin 40 mg, lisinopril 20 mg, isosorbide and metoprolol. Patient does not take any aspirin. He has been on Plavix since he underwent triple vessel bypass surgery at age 32. Patient has smoked 1 pack/day for 30 years, quit 1 month ago. Patient denies any history of diabetes. He follows up with retail area manager Dr. Ricky Dick DO, at [place]. Review of Systems All pertinent positive and negative review of systems mentioned HPI. Past Medical History Past Medical History: Chest Pain / Angina, CVA/TIA, Hyperlipidemia, Hypertension, Myocardial Infarction ([place]) Additional Past Medical History / Comment(s): pt states he had TIA approx five years ago Last Myocardial Infarction Date:: 05/2018 History of Any Multi-Drug Resistant Organisms: None Reported Past Surgical History: Coronary Bypass/CABG, Heart Catheterization With Stent Additional Past Surgical History / Comment(s): triple bypass 2002?, heart caths with about 6 stents Past Anesthesia/Blood Transfusion Reactions: No Reported Reaction Date of Last Stent Placement:: 2010? Past Psychological History: No Psychological Hx Reported Smoking Status: Former smoker Past Alcohol Use History: None Reported Past Drug Use History: None Reported Medications and Allergies Home Medications Medication Instructions Recorded Confirmed Type Clopidogrel Bisulfate [Plavix] 75 mg PO DAILY 01/30/20 01/27/25 History Metoprolol Tartrate [Lopressor] 50 mg PO DAILY 01/30/20 01/27/25 History Isosorbide Mononitrate ER [Imdur] 30 mg PO DAILY 12/19/23 01/27/25 History Simvastatin [Zocor] 40 mg PO DAILY 12/19/23 01/27/25 History Aspirin 81 mg PO DAILY tab 01/28/25 Rx lisinopriL [Zestril] 10 mg PO DAILY 30 Days #30 tab 01/28/25 Rx Allergies Allergy/AdvReac Type Severity Reaction Status Date / Time Penicillins Allergy Rash/Hives Verified 01/27/25 14:51 Physical Examination - Vital Signs Vital Signs: Vital Signs Temp Pulse Resp BP Pulse Ox 01/28/25 08:10 97 01/28/25 08:00 98.0 F 74 18 147/90 96 01/28/25 04:17 77 18 126/90 96 01/28/25 03:04 73 17 134/83 95 01/28/25 01:04 69 18 131/64 98 01/28/25 00:04 78 17 145/89 97 01/27/25 23:02 66 18 143/84 97 01/27/25 21:39 81 18 139/85 98 01/27/25 20:30 71 145/93 96 01/27/25 20:15 86 149/94 97 01/27/25 20:00 73 157/93 97 01/27/25 19:45 78 152/99 97 01/27/25 18:45 80 18 133/75 96 01/27/25 18:30 71 20 158/96 96 01/27/25 18:15 75 20 155/98 01/27/25 18:00 74 18 153/93 97 01/27/25 17:45 83 18 150/89 96 01/27/25 17:30 78 18 138/85 96 01/27/25 17:15 77 20 175/130 96 01/27/25 17:00 76 18 169/107 97 01/27/25 16:45 78 16 153/100 97 01/27/25 16:30 80 20 141/86 97 01/27/25 16:15 82 18 141/101 96 01/27/25 16:00 80 18 153/87 96 01/27/25 15:45 79 18 157/97 95 01/27/25 15:41 98.1 F 83 18 971 H 01/27/25 15:26 98.2 F 80 18 157/97 96 01/27/25 15:14 98 F 85 18 152/95 97 01/27/25 14:48 97.3 F L 106 H 18 165/92 100 Patient is a middle aged male, in no acute distress. Patient is alert awake oriented to time place and person. Speech and language functions are normal. Patient can name and repeat very well. No aphasia or dysarthria. Attention, concentration and fund of knowledge is adequate. On cranial nerve examination, pupils are equal, round and reacting to light, visual suarez are full on confrontation, with no neglect on double simultaneous stimulation. Extraocular muscles are intact with no nystagmus. Face is sym metric, tongue protrudes to the midline. Palatal elevation and sensation normal, hearing and shoulder shrug normal, facial sensation normal. On muscle strength testing, there is no pronator drift and the strength is normal in arms and legs distally and proximally. Deep tendon reflexes are symmetric 1+ in the upper limbs, 2 in the lower limbs and plantars downgoing. Sensory to touch is equal with no neglect on double simultaneous stimulation. Cerebellar function showed no ataxia for [id number] testing. No dysdiadochokinesia. No ataxia for [id number] testing on either side. Tone and bulk of muscles normal. Gait deferred.. On general examination, there is no carotid bruit or murmur, S1-S2 audible. Chest is clear on consultation. Abdomen is soft nontender. No organomegaly, bowel sounds present. Peripheral pulses are present. No peripheral edema. Results - Laboratory Findings CBC and BMP: 01/27/25 15:13 01/27/25 15:13 Abnormal Lab Findings: Abnormal Labs 01/27/25 01/27/25 15:13 15:13 WBC 10.7 H Glucose 144 H Assessment and Plan Assessment: * Possible TIA manifesting with transient tingling of the left hand, and left facial region. Symptoms resolved and 3 to 4 hours. He had similar presentation on 04/13/2021 and another similar presentation 5 years prior to that as well. * Hypertension * Hyperlipidemia * Coronary artery disease, history of bypass surgery at age 32 * Tobacco use 30 pack years, quit 1 month ago Plan: Patient symptoms were very brief, transient and has resolved. No indication for MRI at this point. Patient will undergo workup for TIA. CTA head and neck showed: No evidence of dissection of the cervical internal carotid arteries or vertebral arteries or any evidence of significant stenosis at the carotid bifurcations. No evidence of high-grade stenosis or intracranial aneurysm. 2-D echo with bubble study to rule out PFO 30-day event monitoring rule out PAF. Fasting a.m. lipid panel Hemoglobin A1c Optimize control of blood pressure. Patient was taking lisinopril 5 mg at home. Yesterday he increased the dose to 20 mg and had this episode. We will decrease the lisinopril to 10 mg daily. Continue metoprolol. Patient was taking Plavix 75 mg daily at home. Aspirin 325 mg has been added to the regimen. We will decrease it to 81 mg daily. Neuro checks as per protocol. Telemetry monitoring rule out any arrhythmia PT, OT, speech therapy Patient has stopped smoking just a month ago. Recommend stay off smoking. Neurology will continue to follow. Thank you for the consult. Addendum: 01/29/2025: Fasting lipid panel with cholesterol 184, LDL 100, HDL 34, triglycerides 242. Hemoglobin A1c 6.1 2D echo revealed LVEF 40 to 45%. Mildly increased septal wall thickness. Mildly reduced global LV systolic function. Mildly increased left atrial diameter. Negative bubble study for [id number] shunt. Moderate MR. Trace TR. Patient will follow-up with his retail area manager on Thursday, to schedule 30-day event monitor. Prescription for event monitor was provided to the patient. Clear for discharge.
[2025-01-28 14:53] VITALS: BP 162/91; TEMP 98.1
--- NOTE | 2025-01-28 15:42 | CA ---
Transthoracic Echo Report Name: Stewart Smith Age: 54 Gender: M : 1970 Exam Date: 01/28/2025 13:00 Exam Location: [facility] Ht (in): 68 Wt (lb): 160 Ordering Physician: Rafita Hernandez MD Attending/Referring Phys: Upholsterer Apprentice Jennifer Gambino RDCS Procedure CPT: Indications: TIA, recurrent Cardiac Hx: CABG, CO Technical Quality: Fair Contrast 1: Definity Total Dose (mL): 2 Contrast 2: Agitated Saline Total Dose (mL): MEASUREMENTS (Male / Female) Normal Values 2D ECHO LV Diastolic Diameter PLAX 4.8 cm 4.2 - 5.9 / 3.9 - 5.3 cm LV Systolic Diameter PLAX 3.6 cm IVS Diastolic Thickness 1.4 cm 0.6 - 1.0 / 0.6 - 0.9 cm LVPW Diastolic Thickness 1.4 cm 0.6 - 1.0 / 0.6 - 0.9 cm LV Relative Wall Thickness 0.6 RV Internal Dim ED PLAX 2.5 cm LA Systolic Diameter LX 4.2 cm 3.0 - 4.0 / 2.7 - 3.8 cm LV Diastolic Volume MOD 2C 87.7 cm??? LV Systolic Volume MOD 2C 41.4 cm??? LV Ejection Fraction MOD 2C 52.8 % LV Cardiac Index MOD 2C 1728.7 cm???/min???m??? LV Diastolic Length 2C 7.5 cm LV Systolic Length 2C 6.8 cm M-MODE Aortic Root Diameter MM 3.0 cm LA Systolic Diameter MM 4.3 cm LA Ao Ratio MM 1.4 AV Cusp Separation MM 1.8 cm DOPPLER MV Area PHT 3.0 cm??? Mitral E Point Velocity 73.9 cm/s Mitral A Point Velocity 87.6 cm/s Mitral E to A Ratio 0.8 MV Deceleration Time 252.2 ms FINDINGS Left Ventricle Left ventricular ejection fraction is estimated at 40-45 %. Mildly increased septal wall thickness. Left ventricular cavity size normal. Mildly reduced global left ventricular systolic function. Right Ventricle Normal right ventricular size and function. Unable to estimate the right ventricular systolic pressure. Right Atrium Normal right atrial size. Negative agitated saline bubble study for right to left shunt. Left Atrium Mildly increased left atrial diameter. Mitral Valve Structurally normal mitral valve. Moderate mitral regurgitation. No mitral stenosis. Aortic Valve Trileaflet aortic valve. No aortic stenosis. No aortic regurgitation. Tricuspid Valve Structurally normal tricuspid valve. Trace tricuspid regurgitation. No tricuspid stenosis. Pulmonic Valve Structurally normal pulmonic valve. Trace pulmonic regurgitation. No pulmonic stenosis. Pericardium No pericardial or pleural effusion. Aorta Normal size aortic root and proximal ascending aorta. CONCLUSIONS Left ventricular ejection fraction 40-45% Negative bubble study Moderate mitral regurgitation Trace tricuspid regurgitation No pericardial effusion Previewed by: Dr. Ricardo Vargas DO (Electronically Signed) Final Date: 28 January 2025 15:41
[2025-01-29 08:26] LABS: Chol/HDL Ratio 5.29 Ratio; LDL Cholesterol,Calculated 100.8 mg/dL (0.0-131.0)
[2025-01-29] MEDS ORDERED: ISOSORBIDE MONONITRATE ER 30 MG TAB.ER.24H PO SCH (09:00)
[2025-01-29] MEDS ORDERED: lisinopriL 10 MG TAB PO SCH (09:00)
[2025-01-29] MEDS ORDERED: ASPIRIN 81 MG PO SCH (09:00)
[2025-01-29] MEDS ORDERED: lisinopriL 20 MG TAB PO SCH (09:00)
[2025-01-29] MEDS ORDERED: METOPROLOL TARTRATE 50 MG TAB PO SCH (09:00)
[2025-01-29] MEDS ORDERED: ATORVASTATIN 20 MG TAB PO SCH (09:00)
== END 2025-01-28 14:58 | disposition home or self-care (01) ==
LOC: EC 14:45 → 3SCARD 17:01 → INTOOBSV 17:01 → 3SCARD 20:32
PROVIDERS: ADMIT Hospitalist; ATTEND Hospitalist
DX: R20.0 Anesthesia of skin (principal); R20.2 Paresthesia of skin; I25.10 Atherosclerotic heart disease of native coronary artery without angina pectoris; E78.5 Hyperlipidemia, unspecified; I10 Essential (primary) hypertension; I25.2 Old myocardial infarction; Z86.73 Personal history of transient ischemic attack (TIA), and cerebral infarction without residual deficits; Z87.891 Personal history of nicotine dependence; Z95.5 Presence of coronary angioplasty implant and graft; Z79.02 Long term (current) use of antithrombotics/antiplatelets; Z79.899 Other long term (current) drug therapy; Z88.0 Allergy status to penicillin
CPT/HCPCS: 99291; 36415; 93005; 80061; 80053; 82550; 84484; 85025; 85610; 85730; 83036; 71046; 70496; 70450; 70498; G0378 ×2; C8929; Q9957; Q9967; 93306